=== PATIENT | female | born 1980 | race Caucasian/White ===

== ENCOUNTER 2020-04-28 22:35 | Inpatient (IN) | payer OTHER ==
[2020-04-28] MEDS ORDERED: SODIUM CHLORIDE 0.9% 500 ML 500 ML IV STA (22:40)
[2020-04-28] MEDS ORDERED: NALOXONE 0.4 MG/ML 1 ML VIAL IV STA (22:40)
--- NOTE | 2020-04-28 22:44 | ED ---
Altered Mental Status HPI - General Chief Complaint: Altered Mental Status Stated Complaint: overdose Time Seen by Provider: 04/28/20 22:39 Source: EMS Mode of arrival: EMS Limitations: altered mental status - History of Present Illness Initial Comments: This patient is a 39-year-old woman brought by ambulance for suspected overdose. Patient reportedly had been staying a friend's home. The friend found patient lying down, unresponsive. He reportedly was drug paraphernalia felt to be consistent with crack pipe, also patient suspected to have taken Xanax and possibly gabapentin. On arrival, patient arouses to tactile stimulus but speech not clear enough to elicit any history. MD Complaint: altered mental status -: unknown Severity: severe Consistency of Symptoms: unknown Context: drug abuse Treatments Prior to Arrival: oxygen - Related Data Home Medications Medication Instructions Recorded Confirmed Spectravite Ultra Women 18mg-0.4 1 tab PO DAILY 04/28/20 04/28/20 Tablet Allergies Allergy/AdvReac Type Severity Reaction Status Date / Time Unable to Assess Allergy Verified 04/28/20 22:40 Review of Systems ROS Statement: Those systems with pertinent positive or pertinent negative responses have been documented in the HPI. ROS Other: All systems not noted in ROS Statement are negative. Limitations: ROS unobtainable due to patients medical condition Past Medical History - Past Family History Mother Family Medical History: AICD/Pacemaker family Family Medical History: Unable to Obtain General Exam Limitations: altered mental status General appearance: appears intoxicated, obtunded, obese Head exam: Present: atraumatic, normocephalic Eye exam: Present: nystagmus. Absent: scleral icterus, conjunctival injection ENT exam: Present: mucous membranes dry Neck exam: Present: normal inspection. Absent: tenderness Respiratory exam: Present: rhonchi. Absent: respiratory distress, wheezes, rales, stridor Cardiovascular Exam: Present: regular rate, normal rhythm, normal heart sounds. Absent: systolic murmur, diastolic murmur, rubs, gallop GI/Abdominal exam: Present: soft. Absent: distended, tenderness, guarding, rebound, rigid, mass Extremities exam: Present: normal inspection, normal capillary refill. Absent: pedal edema, calf tenderness Back exam: Present: normal inspection. Absent: CVA tenderness (R), CVA tenderness (L) Neurological exam: Present: altered Skin exam: Present: dry, intact, mottled, other (Skin is cool). Absent: rash Course Vital Signs 04/28/20 04/28/20 04/28/20 22:35 22:46 23:00 Temperature 98.3 F Pulse Rate 66 76 Respiratory 12 12 22 Rate Blood Pressure 109/55 103/67 O2 Sat by Pulse 92 L 91 L Oximetry 04/29/20 04/29/20 04/29/20 00:00 01:00 02:00 Temperature Pulse Rate 75 112 H 110 H Respiratory 24 24 24 Rate Blood Pressure 112/75 95/80 90/60 O2 Sat by Pulse 94 L 94 L 94 L Oximetry 04/29/20 04/29/20 02:14 02:30 Temperature 102.0 F H Pulse Rate 110 H 112 H Respiratory 24 20 Rate Blood Pressure 133/99 138/74 O2 Sat by Pulse 94 L 94 L Oximetry - Reevaluation(s) Reevaluation #1: 04/29/20 00:22 I obtained additional history from the patient's friend. Patient currently staying at the home of the friend. Patient had gone to visit another associate last night and had come home around 5 AM. Patient had then stated in her room all day resting. Patient's friend noted that the light in the room was on well past the patient's usual bedtime, and when she checked, the friend found patient lying in a left lateral decubitus position on the floor next to the bed. Patient then phoned EMS. Reevaluation #2: 04/29/20 00:49 Spoke with patient's mother, Nurys Soot, who had received a phone update from the patient's friend. She states that she is not aware of any medical conditions that the patient has nor any ALLERGIES. Reevaluation #3: 04/29/20 01:06 Case is discussed with admitting physician Dr. Rodas and with Dr. Gotti covering for pulmonology. Reevaluation #4: 04/29/20 01:55 Received notification a critical troponin from laboratory. Repeat ECG pe rformed, no acute ischemia. Case discussed with Dr. Suarez who is covering for cardiology. Procedures - Central Line Placement Left Femoral Consent Obtained: emergent situation Patient Placed on Monitor/Pulse Ox: Yes MD Prep: mask, gown, gloves Central Line Prep: Chlorhexidine scrub Local Anesthesia Used: Lidocaine 1% Ultrasound Used for Placement: Yes Central Line Lumen Inserted: triple Bloods Obtained for Lab: Yes Central Line Position: good blood return, all ports aspirated, flushed, capped, sutured in place with nylon Dressing Applied: Tegaderm Patient Tolerated Procedure: well, no complications Complications: none Medical Decision Making - Lab Data Result diagrams: 04/30/20 04:05 04/30/20 04:05 Lab Results 04/28/20 04/28/20 04/28/20 Range/Units 23:00 23:00 23:00 WBC 24.7 H (3.8-10.6) k/uL RBC 5.28 (3.80-5.40) m/uL Hgb 16.4 H (11.4-16.0) gm/dL Hct 51.6 H (34.0-46.0) % MCV 97.7 (80.0-100.0) fL MCH 31.0 (25.0-35.0) pg MCHC 31.7 (31.0-37.0) g/dL RDW 13.3 (11.5-15.5) % Plt Count 227 (150-450) k/uL MPV 7.6 Neutrophils % (Manual) 72 % Band Neuts % (Manual) 7 % Lymphocytes % (Manual) 15 % Monocytes % (Manual) 6 % Neutrophils # (Manual) 19.50 H (1.3-7.7) k/uL Lymphocytes # (Manual) 3.71 (1.0-4.8) k/uL Monocytes # (Manual) 1.48 H (0-1.0) k/uL Nucleated RBCs 0 (0-0) /100 WBC Manual Slide Review Performed Hypochromasia Moderate VBG pH (7.31-7.41) VBG pCO2 (37-51) mmHg VBG HCO3 (24-28) mmol/L Sodium (137-145) mmol/L Potassium (3.5-5.1) mmol/L Chloride (98-107) mmol/L Carbon Dioxide (22-30) mmol/L Anion Gap mmol/L BUN (7-17) mg/dL Creatinine (0.52-1.04) mg/dL Est GFR (CKD-EPI)AfAm (>60 ml/min/1.73 sqM) Est GFR (CKD-EPI)NonAf (>60 ml/min/1.73 sqM) Glucose (74-99) mg/dL Lactic Ac Sepsis Rflx Plasma Lactic Acid Boo (0.7-2.0) mmol/L Calcium (8.4-10.2) mg/dL Total Bilirubin (0.2-1.3) mg/dL AST (14-36) U/L ALT (4-34) U/L Alkaline Phosphatase (38-126) U/L Creatine Kinase (30-135) U/L CK-MB (CK-2) (0.0-2.4) ng/mL Troponin I (0.000-0.034) ng/mL Total Protein (6.3-8.2) g/dL Albumin (3.5-5.0) g/dL Urine Color Yellow Urine Appearance Cloudy H (Clear) Urine pH 6.0 (5.0-8.0) Ur Specific [place] 1.020 (1.001-1.035) Urine Protein 1+ H (Negative) Urine Glucose (UA) Negative (Negative) Urine Ketones Negative (Negative) Urine Blood Negative (Negative) Urine Nitrite Negative (Negative) Urine Bilirubin Negative (Negative) Urine Urobilinogen 2.0 (<2.0) mg/dL Ur Leukocyte Esterase Negative (Negative) Urine RBC 5 (0-5) /hpf Urine WBC 4 (0-5) /hpf Ur Squamous Epith Cells 1 (0-4) /hpf Hyaline Casts 83 H (0-2) /lpf Urine Mucus Few H (None) /hpf Urine HCG, Qual Not Detected (Not Detectd) Salicylates mg/dL Urine Opiates Screen Not Detected (NotDetected) Ur Oxycodone Screen Not Detected (NotDetected) Urine Methadone Screen Detected H (NotDetected) Ur Propoxyphene Screen Not Detected (NotDetected) Acetaminophen ug/mL Ur Barbiturates Screen Not Detected (NotDetected) U Tricyclic Antidepress Detected H (NotDetected) Ur Phencyclidine Scrn Not Detected (NotDetected) Ur Amphetamines Screen Not Detected (NotDetected) U Methamphetamines Scrn Not Detected (NotDetected) U Benzodiazepines Scrn Detected H (NotDetected) Urine Cocaine Screen Detected H (NotDetected) U Marijuana (THC) Screen Detected H (NotDetected) Serum Alcohol mg/dL Coronavirus (PCR) (Not Detectd) 04/28/20 04/28/20 04/28/20 Range/Units 23:55 23:55 23:55 WBC (3.8-10.6) k/uL RBC (3.80-5.40) m/uL Hgb (11.4-16.0) gm/dL Hct (34.0-46.0) % MCV (80.0-100.0) fL MCH (25.0-35.0) pg MCHC (31.0-37.0) g/dL RDW (11.5-15.5) % Plt Count (150-450) k/uL MPV Neutrophils % (Manual) % Band Neuts % (Manual) % Lymphocytes % (Manual) % Monocytes % (Manual) % Neutrophils # (Manual) (1.3-7.7) k/uL Lymphocytes # (Manual) (1.0-4.8) k/uL Monocytes # (Manual) (0-1.0) k/uL Nucleated RBCs (0-0) /100 WBC Manual Slide Review Hypochromasia VBG pH (7.31-7.41) VBG pCO2 (37-51) mmHg VBG HCO3 (24-28) mmol/L Sodium 136 L (137-145) mmol/L Potassium 7.8 H* (3.5-5.1) mmol/L Chloride 99 (98-107) mmol/L Carbon Dioxide 18 L (22-30) mmol/L Anion Gap 19 mmol/L BUN 19 H (7-17) mg/dL Creatinine 2.49 H (0.52-1.04) mg/dL Est GFR (CKD-EPI)AfAm 27 (>60 ml/min/1.73 sqM) Est GFR (CKD-EPI)NonAf 23 (>60 ml/min/1.73 sqM) Glucose 82 (74-99) mg/dL Lactic Ac Sepsis Rflx Plasma Lactic Acid Boo 9.6 H* (0.7-2.0) mmol/L Calcium 8.1 L (8.4-10.2) mg/dL Total Bilirubin 0.7 (0.2-1.3) mg/dL AST 963 H (14-36) U/L ALT 293 H (4-34) U/L Alkaline Phosphatase 95 (38-126) U/L Creatine Kinase 14983 H* (30-135) U/L CK-MB (CK-2) 173.0 H (0.0-2.4) ng/mL Troponin I 3.930 H* (0.000-0.034) ng/mL Total Protein 7.4 (6.3-8.2) g/dL Albumin 4.3 (3.5-5.0) g/dL Urine Color Urine Appearance (Clear) Urine pH (5.0-8.0) Ur Specific Republic (1.001-1.035) Urine Protein (Negative) Urine Glucose (UA) (Negative) Urine Ketones (Negative) Urine Blood (Negative) Urine Nitrite (Negative) Urine Bilirubin (Negative) Urine Urobilinogen (<2.0) mg/dL Ur Leukocyte Esterase (Negative) Urine RBC (0-5) /hpf Urine WBC (0-5) /hpf Ur Squamous Epith Cells (0-4) /hpf Hyaline Casts (0-2) /lpf Urine Mucus (None) /hpf Urine HCG, Qual (Not Detectd) Salicylates <1.0 mg/dL Urine Opiates Screen (NotDetected) Ur Oxycodone Screen (NotDetected) Urine Methadone Screen (NotDetected) Ur Propoxyphene Screen (NotDetected) Acetaminophen <10.0 ug/mL Ur Barbiturates Screen (NotDetected) U Tricyclic Antidepress (NotDetected) Ur Phencyclidine Scrn (NotDetected) Ur Amphetamines Screen (NotDetected) U Methamphetamines Scrn (NotDetected) U Benzodiazepines Scrn (NotDetected) Urine Cocaine Screen (NotDetected) U Marijuana (THC) Screen (NotDetected) Serum Alcohol <10 mg/dL Coronavirus (PCR) (Not Detectd) 04/28/20 04/29/20 04/29/20 Range/Units 23:55 00:42 00:47 WBC (3.8-10.6) k/uL RBC (3.80-5.40) m/uL Hgb (11.4-16.0) gm/dL Hct (34.0-46.0) % MCV (80.0-100.0) fL MCH (25.0-35.0) pg MCHC (31.0-37.0) g/dL RDW (11.5-15.5) % Plt Count (150-450) k/uL MPV Neutrophils % (Manual) % Band Neuts % (Manual) % Lymphocytes % (Manual) % Monocytes % (Manual) % Neutrophils # (Manual) (1.3-7.7) k/uL Lymphocytes # (Manual) (1.0-4.8) k/uL Monocytes # (Manual) (0-1.0) k/uL Nucleated RBCs (0-0) /100 WBC Manual Slide Review Hypochromasia VBG pH 7.11 L* (7.31-7.41) VBG pCO2 64 H (37-51) mmHg VBG HCO3 19 L (24-28) mmol/L Sodium (137-145) mmol/L Potassium (3.5-5.1) mmol/L Chloride (98-107) mmol/L Carbon Dioxide (22-30) mmol/L Anion Gap mmol/L BUN (7-17) mg/dL Creatinine (0.52-1.04) mg/dL Est GFR (CKD-EPI)AfAm (>60 ml/min/1.73 sqM) Est GFR (CKD-EPI)NonAf (>60 ml/min/1.73 sqM) Glucose (74-99) mg/dL Lactic Ac Sepsis Rflx Y Plasma Lactic Acid Boo (0.7-2.0) mmol/L Calcium (8.4-10.2) mg/dL Total Bilirubin (0.2-1.3) mg/dL AST (14-36) U/L ALT (4-34) U/L Alkaline Phosphatase (38-126) U/L Creatine Kinase (30-135) U/L CK-MB (CK-2) (0.0-2.4) ng/mL Troponin I (0.000-0.034) ng/mL Total Protein (6.3-8.2) g/dL Albumin (3.5-5.0) g/dL Urine Color Urine Appearance (Clear) Urine pH (5.0-8.0) Ur Specific Republic (1.001-1.035) Urine Protein (Negative) Urine Glucose (UA) (Negative) Urine Ketones (Negative) Urine Blood (Negative) Urine Nitrite (Negative) Urine Bilirubin (Negative) Urine Urobilinogen (<2.0) mg/dL Ur Leukocyte Esterase (Negative) Urine RBC (0-5) /hpf Urine WBC (0-5) /hpf Ur Squamous Epith Cells (0-4) /hpf Hyaline Casts (0-2) /lpf Urine Mucus (None) /hpf Urine HCG, Qual (Not Detectd) Salicylates mg/dL Urine Opiates Screen (NotDetected) Ur Oxycodone Screen (NotDetected) Urine Methadone Screen (NotDetected) Ur Propoxyphene Screen (NotDetected) Acetaminophen ug/mL Ur Barbiturates Screen (NotDetected) U Tricyclic Antidepress (NotDetected) Ur Phencyclidine Scrn (NotDetected) Ur Amphetamines Screen (NotDetected) U Methamphetamines Scrn (NotDetected) U Benzodiazepines Scrn (NotDetected) Urine Cocaine Screen (NotDetected) U Marijuana (THC) Screen (NotDetected) Serum Alcohol mg/dL Coronavirus (PCR) Not Detected (Not Detectd) - EKG Data -: EKG Interpreted by [place] EKG shows normal: sinus rhythm, axis (Normal), intervals (MD interval 162 ms, QTC 44 ms, both normal. QRS duration 120 ms, consistent with nonspecific intraventricular conduction delay), QRS complexes (nonspecific intraventricular conduction delay), ST-T waves (Normal) Rate: tachycardia (Rate 111 bpm) Critical Care Time Critical Care Time: Yes (55 minutes) Disposition Clinical Impression: Drug overdose, Pneumonia, Delirium, Hyperkalemia, Acute kidney injury, Lactic acidosis Disposition: ADMITTED IP TO THIS [facility] Condition: Critical
[2020-04-28 23:16] LABS: Appearance,Urine Cloudy (Clear); Bilirubin,Urine Negative (Negative); Blood,Urine Negative (Negative); Color,Urine Yellow; Glucose,Urine (UA) Negative (Negative); Hyaline Casts,Urine 83 /lpf (0-2); Ketones,Urine Negative (Negative); Leukocyte Esterase,Urine Negative (Negative); Mucus,Urine Few /hpf; Nitrite,Urine Negative (Negative); Protein,Urine 1+ (Negative); RBC,Urine 5 /hpf (0-5); Squamous Epithelial Cell,Urine 1 /hpf (0-4); WBC,Urine 4 /hpf (0-5)
--- NOTE | 2020-04-28 23:20 | XR ---
EXAMINATION TYPE: XR chest 1V portable DATE OF EXAM: 04/28/2020 COMPARISON: NONE HISTORY: Overdose. Vomiting. TECHNIQUE: FINDINGS: There is some patchy airspace consolidation in the left upper and lower lobe. The right nakia g is clear. There is no heart failure. Heart size is normal. There is no definite pleural effusion. IMPRESSION: Left side pneumonia.
[2020-04-28] MEDS ORDERED: PIPERACILLIN-TAZOBACTAM 3.375 GM in SODIUM CHLORIDE 0.9% 100 ML IVPB STA (23:21)
[2020-04-28 23:29] LABS: Amphetamine Screen,Urine Not Detected (NotDetected); Benzodiazepines Screen,Urine Detected (NotDetected); Cocaine Screen,Urine Detected (NotDetected); Opiate Screen,Urine Not Detected (NotDetected); Phencyclidine Screen,Urine Not Detected (NotDetected); Tricyclic Antidepressant,Urine Detected (NotDetected); Urn Cannabinoid Scrn Detected (NotDetected)
[2020-04-28 23:30] LABS: Barbiturate Screen,Urine Not Detected (NotDetected); Methadone Screen, Urine Detected (NotDetected); Oxycodone Screen, Urine Not Detected (NotDetected)
[2020-04-28] MEDS: LEVOFLOXACIN 750MG-D5W PMX 750 MG in DEXTROSE/WATER 1 150ML.BAG IVPB STA ×2 (23:30→23:32)
[2020-04-28 23:35] LABS: HCT 51.6 % (34.0-46.0); HGB 16.4 gm/dL (11.4-16.0); Hypochromasia Moderate; MCHC 31.7 g/dL (31.0-37.0); MCV 97.7 fL (80.0-100.0); Mean Platelet Volume 7.6; Platelet Count 227 k/uL (150-450); RBC 5.28 m/uL (3.80-5.40); RDW 13.3 % (11.5-15.5); WBC 24.7 k/uL (3.8-10.6)
[2020-04-29 00:07] LABS: Band Neutrophils % 7 %; Lymphocytes # (M) 3.71 k/uL (1.0-4.8); Monocytes # (M) 1.48 k/uL (0-1.0); Neutrophils % (M) 72 %; Nucleated Red Blood Cells 0 /100 WBC (0-0); Total Cells Counted 100
[2020-04-29] MEDS ORDERED: MORPHINE SULFATE 4 MG/ML SYRINGE IV STA (00:21)
--- NOTE | 2020-04-29 00:28 | CT ---
EXAM: CT Head Without Intravenous Contrast CLINICAL HISTORY: ITS.REASON CT Reason: altered mental status TECHNIQUE: Axial computed tomography images of the head/brain without intravenous contrast. CTDI is 49.27 mGy and DLP is 1217.4 mGy-cm. This CT exam was performed using one or more of the following dose reduction techniques: automated exposure control, adjustment of the mA and/or kV according to patient size, and/or use of iterative reconstruction technique. COMPARISON: No relevant prior studies available. FINDINGS: Brain: No hemorrhage or mass effect. Ventricles: No hydrocephalus. Bones/joints: Unremarkable. Soft tissues: Unremarkable. Sinuses: Unremarkable. Mastoid air cells: Clear. IMPRESSION: No acute hemorrhage, hydrocephalus, or mass effect.
[2020-04-29 00:37] LABS: Acetaminophen <10.0 ug/mL; African American GFR (CKD) 27 (>60 ml/min/1.73 sqM); Albumin 4.3 g/dL (3.5-5.0); Alcohol <10 mg/dL; Alkaline Phosphatase 95 U/L (38-126); Anion Gap 19 mmol/L; Blood Urea Nitrogen 19 mg/dL (7-17); Calcium 8.1 mg/dL (8.4-10.2); Carbon Dioxide 18 mmol/L (22-30); Chloride 99 mmol/L (98-107); Glucose 82 mg/dL (74-99); Non-African American GFR(CKD) 23 (>60 ml/min/1.73 sqM); Salicylate <1.0 mg/dL; Sodium 136 mmol/L (137-145); Total Bilirubin 0.7 mg/dL (0.2-1.3); Total Protein 7.4 g/dL (6.3-8.2)
[2020-04-29 00:42] LABS: AST 963 U/L (14-36)
[2020-04-29] MEDS ORDERED: HYDROmorphone 0.5 MG/0.5 ML SYRINGE IVP STA (00:42)
[2020-04-29] MEDS ORDERED: SODIUM CHLORIDE 0.9% 1,000 ML IV ONE ×3 (00:42→05:23)
[2020-04-29 00:44] LABS: ALT 293 U/L (4-34)
[2020-04-29 00:54] LABS: Potassium 7.8 mmol/L (3.5-5.1)
[2020-04-29] MEDS ORDERED: SODIUM CHLORIDE 0.9% 1,000 ML IV STA (00:57)
[2020-04-29] MEDS ORDERED: VANCOMYCIN IV PER PHARMACY 1 EACH MISC MISCELLANE PRN (00:58)
[2020-04-29] MEDS ORDERED: DEXTROSE 50% SYRINGE 50 ML IVP STA ×2 (00:59→19:23)
[2020-04-29] MEDS ORDERED: CALCIUM GLUCONATE 1 GM in SODIUM CHLORIDE 0.9% 100 ML IVPB ONE ×3 (00:59→09:45)
[2020-04-29] MEDS ORDERED: INSULIN REGULAR 100 UNIT/ML VIAL (IV) IV STA (00:59)
[2020-04-29] MEDS ORDERED: SODIUM BICARB 8.4% 50 ML SYR (1 MEQ/ML) IV STA ×2 (00:59→06:56)
[2020-04-29 01:00] LABS: VBG PH 7.11 (7.31-7.41)
[2020-04-29] MEDS ORDERED: VANCOMYCIN 1,750 MG in SODIUM CHLORIDE 0.9% 500 ML 500 ML IVPB SCH (01:00)
--- NOTE | 2020-04-29 01:00 | CT ---
EXAM: CT Abdomen and Pelvis Without Intravenous Contrast CLINICAL HISTORY: ITS.REASON CT Reason: vomiting TECHNIQUE: Axial computed tomography images of the abdomen and pelvis without intravenous contrast. CTDI is 28.8 mGy and DLP is 1825 mGy-cm. This CT exam was performed using one or more of the following dose reduction techniques: automated exposure control, adjustment of the mA and/or kV according to patient size, and/or use of iterative reconstruction technique. COMPARISON: No relevant prior studies available. FINDINGS: Lung bases: Patchy opacities in the left upper and lower lobes. Mild cardiomegaly. ABDOMEN: Liver: Unremarkable. Gallbladder and bile ducts: Removed. Pancreas: No ductal dilation. Spleen: Unremarkable. Adrenals: Unremarkable. Kidneys and ureters: No obstructing stones. No hydronephrosis. Stomach and bowel: No bowel obstruction. No bowel wall thickening. Mildly impacted stool throughout the colon. Mild hiatal hernia. PELVIS: Appendix: No evidence of appendicitis. Bladder: No stones. Reproductive: Calcification in the uterus. ABDOMEN and PELVIS: Intraperitoneal space: Unremarkable. Bones/joints: No acute fractures. Soft tissues: Soft tissues thickening and emphysema on the left breast.. Vasculature: No abdominal aortic aneurysm. Lymph nodes: No enlarged lymph nodes. IMPRESSION: 1. Soft tissue swelling and subcutaneous emphysema involving the left breast. Correlate with infectious process the recent procedure. 2. Patchy opacity in the left upper and lower lobes, correlate with aspiration versus pneumonia. 3. Mild hiatal hernia. 4. Mildly impacted stool throughout the colon.
[2020-04-29 01:27] LABS: Troponin I 3.93 ng/mL (0.000-0.034)
[2020-04-29] MEDS ORDERED: ACETAMINOPHEN SUPPOSITORY 650 MG SUPP RECTAL PRN (01:47)
[2020-04-29] MEDS ORDERED: NALOXONE 0.4 MG/ML 1 ML VIAL IV PRN (01:47)
[2020-04-29] MEDS ORDERED: MORPHINE SULFATE 4 MG/ML SYRINGE IV PRN (01:47)
[2020-04-29] MEDS ORDERED: ACETAMINOPHEN TAB 325 MG TAB PO PRN (01:47)
[2020-04-29 01:53] LABS: Creatine Kinase 47269 U/L (30-135)
[2020-04-29] MEDS ORDERED: SODIUM CHLORIDE 0.9% 1,000 ML IV SCH (02:00)
[2020-04-29 02:55] LABS: Glucose,Whole Blood 107 mg/dL (75-99)
[2020-04-29] MEDS ORDERED: propofoL 100 ML IV ONE (03:11)
[2020-04-29] MEDS ORDERED: PANTOPRAZOLE 40 MG/10 ML VIAL IVP ONE (03:23)
--- NOTE | 2020-04-29 03:38 | P.HPIM ---
History of Present Illness H&P Date: 04/29/20 Chief Complaint: unresponsive patient is combative, and using foul language when I approached her in the ED, she is definitely more awake compared to upon presentation , but currently Alert, restless, and agitated. she is not providing any history history obtained by discussing case with ED doc, and reviewing medical records. patient brought to the hospital by EMS , due to being found unresponsive, she is a recovering drug abuser, supposedly on methadone. she spent a night at a friends house and possibly have done some drugs there. and went back to her other friend house around 5 AM to rest. this friend became suspicious when he noticed the room light still on till late during the day past her usual sleep time. so he went checking on her, and found her laying on the floor on her left side, next to the bed, unresponsive. so decided to notify EMS. family did not report any known medical conditions or allergies. patient currently laying in bed in soft restraints, I noticed dry blood around her nose and mouth, per ED, she had coffee ground Emesis . initially upon presentation she was waking up to gentle stimulation , but not making any sense. she responded a little to a dose of narcan. however, currently she is alert, combative and agitated. she makes good eye contact, but does not cooperate with interview , and using foul language. work up in the ED showed REGLA lactic acidosis hyperkalemia suspected aspiration vs pneumonia leukocytosis and acute rhabdomyolysis Review of Systems ROS unobtainable: due to mental status Past Medical History Past Medical History: Unable to Obtain History of Any Multi-Drug Resistant Organisms: Unobtainable Past Surgical History: Unable to Obtain Past Psychological History: Unable to Obtain - Past Family History family Family Medical History: Unable to Obtain Medications and Allergies Home Medications Medication Instructions Recorded Confirmed Type Spectravite Ultra Women 18mg-0.4 1 tab PO DAILY 04/28/20 04/28/20 History Tablet Allergies Allergy/AdvReac Type Severity Reaction Status Date / Time Unable to Assess Allergy Verified 04/28/20 22:40 Physical Exam Vitals: Vital Signs Temp Pulse Resp BP Pulse Ox 04/29/20 02:14 102.0 F H 110 H 24 133/99 94 L 04/28/20 22:46 12 04/28/20 22:35 98.3 F 66 12 109/55 92 L Intake and Output 04/28/20 04/28/20 04/29/20 14:59 22:59 06:59 Other: Weight 113.398 kg patient combative and agitated. I could not perform proper physical exam however, patient is alert, makes eye contact, but seems confused and agitated, she is using clear foul language when approached or engaged. and becomes very agitated she has evidence of dry blood around her nostrils and mouth she is currently in soft restraints Results CBC & Chem 7: 04/28/20 23:00 04/28/20 23:55 Labs: Abnormal Lab Results - Last 24 Hours (Table) 04/28/20 04/28/20 04/28/20 Range/Units 23:00 23:00 23:55 WBC 24.7 H (3.8-10.6) k/uL Hgb 16.4 H (11.4-16.0) gm/dL Hct 51.6 H (34.0-46.0) % Neutrophils # (Manual) 19.50 H (1.3-7.7) k/uL Monocytes # (Manual) 1.48 H (0-1.0) k/uL VBG pH (7.31-7.41) VBG pCO2 (37-51) mmHg VBG HCO3 (24-28) mmol/L Sodium (137-145) mmol/L Potassium (3.5-5.1) mmol/L Carbon Dioxide (22-30) mmol/L BUN (7-17) mg/dL Creatinine (0.52-1.04) mg/dL POC Glucose (mg/dL) (75-99) mg/dL Plasma Lactic Acid Boo 9.6 H* (0.7-2.0) mmol/L Calcium (8.4-10.2) mg/dL AST (14-36) U/L ALT (4-34) U/L Creatine Kinase (30-135) U/L CK-MB (CK-2) (0.0-2.4) ng/mL Troponin I (0.000-0.034) ng/mL Urine Appearance Cloudy H (Clear) Urine Protein 1+ H (Negative) Hyaline Casts 83 H (0-2) /lpf Urine Mucus Few H (None) /hpf Urine Methadone Screen Detected H (NotDetected) U Tricyclic Antidepress Detected H (NotDetected) U Benzodiazepines Scrn Detected H (NotDetected) Urine Cocaine Screen Detected H (NotDetected) U Marijuana (THC) Screen Detected H (NotDetected) 04/28/20 04/28/20 04/28/20 Range/Units 23:55 23:55 23:55 WBC (3.8-10.6) k/uL Hgb (11.4-16.0) gm/dL Hct (34.0-46.0) % Neutrophils # (Manual) (1.3-7.7) k/uL Monocytes # (Manual) (0-1.0) k/uL VBG pH 7.11 L* (7.31-7.41) VBG pCO2 64 H (37-51) mmHg VBG HCO3 19 L (24-28) mmol/L Sodium 136 L (137-145) mmol/L Potassium 7.8 H* (3.5-5.1) mmol/L Carbon Dioxide 18 L (22-30) mmol/L BUN 19 H (7-17) mg/dL Creatinine 2.49 H (0.52-1.04) mg/dL POC Glucose (mg/dL) (75-99) mg/dL Plasma Lactic Acid Boo (0.7-2.0) mmol/L Calcium 8.1 L (8.4-10.2) mg/dL AST 963 H (14-36) U/L ALT 293 H (4-34) U/L Creatine Kinase 69475 H* (30-135) U/L CK-MB (CK-2) 173.0 H (0.0-2.4) ng/mL Troponin I 3.930 H* (0.000-0.034) ng/mL Urine Appearance (Clear) Urine Protein (Negative) Hyaline Casts (0-2) /lpf Urine Mucus (None) /hpf Urine Methadone Screen (NotDetected) U Tricyclic Antidepress (NotDetected) U Benzodiazepines Scrn (NotDetected) Urine Cocaine Screen (NotDetected) U Marijuana (THC) Screen (NotDetected) 04/29/20 Range/Units 02:53 WBC (3.8-10.6) k/uL Hgb (11.4-16.0) gm/dL Hct (34.0-46.0) % Neutrophils # (Manual) (1.3-7.7) k/uL Monocytes # (Manual) (0-1.0) k/uL VBG pH (7.31-7.41) VBG pCO2 (37-51) mmHg VBG HCO3 (24-28) mmol/L Sodium (137-145) mmol/L Potassium (3.5-5.1) mmol/L Carbon Dioxide (22-30) mmol/L BUN (7-17) mg/dL Creatinine (0.52-1.04) mg/dL POC Glucose (mg/dL) 107 H (75-99) mg/dL Plasma Lactic Acid Boo (0.7-2.0) mmol/L Calcium (8.4-10.2) mg/dL AST (14-36) U/L ALT (4-34) U/L Creatine Kinase (30-135) U/L CK-MB (CK-2) (0.0-2.4) ng/mL Troponin I (0.000-0.034) ng/mL Urine Appearance (Clear) Urine Protein (Negative) Hyaline Casts (0-2) /lpf Urine Mucus (None) /hpf Urine Methadone Screen (NotDetected) U Tricyclic Antidepress (NotDetected) U Benzodiazepines Scrn (NotDetected) Urine Cocaine Screen (NotDetected) U Marijuana (THC) Screen (NotDetected) Assessment and Plan Assessment: acute metabolic encephalopathy sepsis rule out pneumonia acute rhabdomyolysis acute kindey injury hyperkalemia lactic acidosis possible upper GI bleeding history of polysubstance abuse plan admission to ICU close monitoring of vital sings patient had central venous cath inserted monitor electrolytes , hyperkalemia cocktail given , recheck in 4 hours and repeat as needed nephro consult monitor urine output aggressive IVF hydration with normal saline , monitor CK pain control with morphine if mental status allows and appropriate blood culture empiric antibiotics with vanco and zosyn check COVID protonix IV BID , and one time dose of 80mg GI consult elevated trops , no acute ST changes on EKG cardiology consult avoid anticoagulation due to Upper GI bleeding supplemental oxygen as needed patient was not intubated due to significant improvement in mental status , and clearly able to protect her airways at this time CODE STATUS: full code DVT prophylaxis: mechanical Discussed with: Patient, ER Anticipated length of stay > than [address]: pending clinical course A total of 75 minutes was spent on the care of this complex patient more than 50% of the time was spent in counseling and care coordination.
[2020-04-29] MEDS ORDERED: PROPOFOL 10 MG/ML 20 ML VIAL IV ONE (03:55)
[2020-04-29] MEDS ORDERED: ROCURONIUM 10 MG/ML (5 ML VIAL) IV ONE (03:55)
--- NOTE | 2020-04-29 05:13 | XR ---
EXAM: XR Chest, 1 View CLINICAL HISTORY: ITS.REASON XR Reason: Intubation TECHNIQUE: Frontal view of the chest. COMPARISON: 04/28/2020 IMPRESSION: Improved aeration of the left lung opacities. ET tube terminates 4.3 cm from the savanna. NG side-port terminates in the proximal stomach.
[2020-04-29] MEDS: SODIUM CHLORIDE 0.9% 1,000 ML IV SCH ×4 (05:23→19:16)
[2020-04-29 05:49] LABS: Amorphous Sediment,Urine Few /hpf; Appearance,Urine Cloudy (Clear); Bilirubin,Urine Negative (Negative); Blood,Urine Large (Negative); Color,Urine Red; Glucose,Urine (UA) Negative (Negative); Hyaline Casts,Urine 7 /lpf (0-2); Ketones,Urine Negative (Negative); Leukocyte Esterase,Urine Negative (Negative); Mucus,Urine Occasional /hpf; Nitrite,Urine Negative (Negative); Protein,Urine 2+ (Negative); RBC,Urine 3 /hpf (0-5); Specific Gravity,Urine 1.019 (1.001-1.035); Squamous Epithelial Cell,Urine 1 /hpf (0-4); Urobilinogen,Urine <2.0 mg/dL (<2.0); WBC,Urine 10 /hpf (0-5)
[2020-04-29 05:54] LABS: ABG Base Excess -8.4 mmol/L; ABG HCO3 19 mmol/L (21-25); ABG Oxygen Saturation 96.3 % (94-97); ABG PCO2 42 mmHg (35-45); ABG PH 7.26 (7.35-7.45); ABG PO2 93 mmHg (83-108); ABG TCO2 20 mmol/L (19-24); Allen Test Performed? Yes
[2020-04-29 06:28] LABS: Basophils # (A) 0.1 k/uL (0-0.2); Basophils % (A) 0 %; Eosinophils % (A) 0 %; HCT 49.6 % (34.0-46.0); Lymphocytes # (A) 1.4 k/uL (1.0-4.8); Lymphocytes % (A) 6 %; MCH 30.9 pg (25.0-35.0); MCHC 32.2 g/dL (31.0-37.0); MCV 95.9 fL (80.0-100.0); Mean Platelet Volume 9.1; Monocytes # (A) 1.1 k/uL (0-1.0); Monocytes % (A) 5 %; Neutrophils # (A) 19.5 k/uL (1.3-7.7); Neutrophils % (A) 88 %; Platelet Count 137 k/uL (150-450); RBC 5.18 m/uL (3.80-5.40); RDW 13.5 % (11.5-15.5); WBC 22.3 k/uL (3.8-10.6)
[2020-04-29 06:40] LABS: Albumin 2.5 g/dL (3.5-5.0); Total Bilirubin 0.5 mg/dL (0.2-1.3); Total Protein 4.9 g/dL (6.3-8.2)
[2020-04-29 06:46] LABS: Calcium 6.3 mg/dL (8.4-10.2); Potassium 6.5 mmol/L (3.5-5.1)
[2020-04-29] MEDS ORDERED: DEXTROSE 50% SYRINGE 50 ML IVP ONE (06:53)
[2020-04-29] MEDS ORDERED: SODIUM POLYSTYRENE SULFONATE 15 GM/60 ML BOTTLE PO ONE (06:53)
[2020-04-29] MEDS ORDERED: INSULIN REGULAR 100 UNIT/ML VIAL (IV) IV ONE ×2 (06:53→19:23)
[2020-04-29 07:06] LABS: Glucose,Whole Blood 118 mg/dL (75-99)
[2020-04-29] MEDS: IPRATROPIUM-ALBUTEROL 3 ML NEB INHALATION SCH ×4 (08:37→19:30)
[2020-04-29] MEDS: CHLORHEXIDINE GLUCONATE 15 ML CUP MUCOUS MEM SCH ×2 (08:46→20:44)
[2020-04-29] MEDS: PANTOPRAZOLE 40 MG/10 ML VIAL IVP SCH ×2 (08:46→20:44)
[2020-04-29] MEDS: PIPERACILLIN-TAZOBACTAM 3.375 GM in SODIUM CHLORIDE 0.9% 100 ML IVPB SCH ×2 (08:46→16:50)
[2020-04-29] MEDS ORDERED: FAMOTIDINE 20 MG/2 ML VIAL IV SCH (09:00)
[2020-04-29] MEDS ORDERED: ACETAMINOPHEN IV (For NPO) 1,000 MG in EMPTY BAG 1 BAG IVPB ONE (09:00)
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
[2020-04-29] MEDS: DEXTROSE 5% IN WATER 1,000 ML with SODIUM BICARB (1 MEQ/ML) 150 ML IV SCH (09:29)
--- NOTE | 2020-04-29 09:45 | P.NPCON ---
History of Present Illness - Reason for Consult acute renal failure, hyperkalemia - History of Present Illness Reason for consultation: Acute kidney injury, rhabdomyolysis and hyperkalemia History of present illness: Patient is a 39-year-old female seen in renal consultation for acute kidney injury, rhabdomyolysis and hyperkalemia. Patient had been staying at a friend's house that she hadn't seen in a while and was subsequently found more altered by another friend. She was subsequently brought to the hospital by the ambulance for suspected overdose. Patient's urine drug screen was positive for methadone, TCAs, benzodiazepines, cocaine and marijuana. Serum alcohol and salicylate level was negative. Patient's potassium level was 7.8 and was down to 6.5 this morning. It was again medically treated this morning and repeat level is pending. Her bicarb level was 18 and is up to 20. Patient's CK level was 47,269 yesterday night and is up to 82,832 this morning. She is receiving normal saline at 200 mL an hour and isotonic bicarbonate drip at 75 mL an hour was also started this morning. Urine output about 50 mL an hour. She also received 4-1/2 L of normal saline bolus so far. Creatinine was 2.49 on admission and is 2.18 today. Unknown baseline renal function. Corrected calcium 7.5 this morning. Ionized calcium a little low at 3.7. Vital signs are stable. General: The patient appeared well nourished and normally developed. HEENT: Intubated. LUNGS: Breath sounds decreased. HEART: Rate and Rhythm are regular. ABDOMEN: Soft, nontender. Obese. EXTREMITITES: No edema. Past Medical History Past Medical History: Unable to Obtain History of Any Multi-Drug Resistant Organisms: None Reported, Unobtainable Past Surgical History: Orthopedic Surgery Additional Past Surgical History / Comment(s): Left leg surgery, hospital unknown. Past Psychological History: Anxiety, Depression Additional Psychological History / Comment(s): Per friend Smoking Status: Unknown if ever smoked Past Alcohol Use History: Daily Past Drug Use History: Heroin, IV Drug Use, Prescription Drug Abuse Additional Drug Use History / Comment(s): Per friend - Past Family History Mother Family Medical History: AICD/Pacemaker family Family Medical History: Unable to Obtain Medications and Allergies Home Medications Medication Instructions Recorded Confirmed Type Spectravite Ultra Women 18mg-0.4 1 tab PO DAILY 03/14/21 03/14/21 History Tablet Allergies Allergy/AdvReac Type Severity Reaction Status Date / Time Unable to Assess Allergy Verified 04/28/20 22:40 Physical Exam Vitals: Vital Signs Temp Pulse Resp BP Pulse Ox 04/29/20 09:00 101 H 25 H 115/79 89 L 04/29/20 08:38 102 H 04/29/20 08:30 103 H 29 H 109/81 91 L 04/29/20 08:00 101.4 F H 102 H 25 H 116/78 94 L 04/29/20 07:30 99 31 H 99/57 95 04/29/20 07:15 98 30 H 86/72 94 L 04/29/20 07:00 98 32 H 99/63 94 L 04/29/20 06:45 98 35 H 95/48 93 L 04/29/20 06:30 98 34 H 85/48 93 L 04/29/20 06:15 96 37 H 78/31 93 L 04/29/20 06:00 98 35 H 95 04/29/20 05:45 99 37 H 96/69 94 L 04/29/20 05:30 101 H 40 H 72/53 93 L 04/29/20 05:10 101 H 35 H 89/56 95 04/29/20 05:00 105 H 40 H 103/53 93 L 04/29/20 04:50 105 H 29 H 103/53 95 04/29/20 04:40 101.6 F H 105 H 37 H 80/39 96 04/29/20 04:39 106 H 38 H 80/39 96 04/29/20 04:20 116 H 22 151/81 95 04/29/20 04:10 114 H 21 105/54 94 L 04/29/20 04:00 112 H 20 90 L 04/29/20 03:50 114 H 20 114/95 98 04/29/20 03:40 109 H 19 160/97 90 L 04/29/20 03:30 112 H 33 H 160/97 93 L 04/29/20 03:20 112 H 21 117/102 87 L 04/29/20 03:10 112 H 44 H 117/102 89 L 04/29/20 03:00 111 H 41 H 117/102 90 L 04/29/20 02:52 89 L 04/29/20 02:30 112 H 20 138/74 94 L 04/29/20 02:14 102.0 F H 110 H 24 133/99 94 L 04/29/20 02:00 110 H 24 90/60 94 L 04/29/20 01:00 112 H 24 95/80 94 L 04/29/20 00:00 75 24 112/75 94 L 04/28/20 23:00 76 22 103/67 91 L 04/28/20 22:46 12 04/28/20 22:35 98.3 F 66 12 109/55 92 L Intake and Output 04/28/20 04/29/20 04/29/20 22:59 06:59 14:59 Intake Total 842.468 400 Output Total 220 80 Balance 622.468 320 Intake: IV 800 400 Sodium Chloride 0.9% 1, 800 400 000 ml @ 200 mls/hr IV . Q5H SPIKE Rx#:[id number] Intake, IV Titration 42.468 Amount propofoL 1,000 mg In 42.468 Empty Bag 1 bag @ Titrate IV .Q0M SPIKE Rx#: [id number] Output: Urine 220 80 Other: Voiding Method Indwelling Catheter # Voids 0 Weight 113.398 kg 123.8 kg ABP, PAP, CO, CI - Last 8 Hours Arterial Blood Pressure 113/71 Arterial Blood Pressure 121/72 Arterial Blood Pressure 114/67 Arterial Blood Pressure 112/65 Arterial Blood Pressure 96/63 Arterial Blood Pressure 90/64 Arterial Blood Pressure 93/65 Arterial Blood Pressure 82/60 Arterial Blood Pressure 80/64 Arterial Blood Pressure 71/48 Arterial Blood Pressure 73/51 Arterial Blood Pressure 83/57 Arterial Blood Pressure 72/49 Arterial Blood Pressure 86/61 Arterial Blood Pressure 90/61 Arterial Blood Pressure 73/52 Arterial Blood Pressure 72/51 Arterial Blood Pressure 119/78 Arterial Blood Pressure 116/79 Results - Lab Results Most recent lab results ABG pH 7.26 (7.35-7.45) L 04/29/20 05:55 ABG pCO2 42 mmHg (35-45) 04/29/20 05:55 ABG pO2 93 mmHg (83-108) 04/29/20 05:55 ABG HCO3 19 mmol/L (21-25) L 04/29/20 05:55 ABG O2 Saturation 96.3 % (94-97) 04/29/20 05:55 Calcium 6.3 mg/dL (8.4-10.2) L* 04/29/20 04:35 04/29/20 04:35 04/29/20 04:35 Assessment and Plan Plan: Assessment: 1. Acute kidney injury secondary to ATN secondary to rhabdomyolysis. Creatinine 2.49 on admission and is 2.18 today. Unknown baseline renal function. 2. Rhabdomyolysis. 3. Hyperkalemia secondary to acute kidney injury, rhabdomyolysis and metabolic acidosis. 4. Hypocalcemia secondary to acute kidney injury and rhabdomyolysis. 5. Metabolic acidosis secondary to acute kidney injury and IV fluids. 6. Polysubstance drug overdose. Plan: Maintain normal saline as well as bicarbonate drip. Repeat potassium level at 11 AM. Repeat CMP and CK level again this evening. Poison control will also be notified. Calcium is being replaced. Avoid nephrotoxins. Continue to monitor renal function and urine output closely. Continue to assess closely for need for renal replacement therapy. Thank you for the consultation. I will continue to follow the patient with you during her hospital stay.
[2020-04-29 10:27] VITALS: BMI 42.7
--- NOTE | 2020-04-29 10:56 | ECHOF ---
Referral Reason:elevated troponin MEASUREMENTS -------- HEIGHT: 170.2 cm WEIGHT: 123.4 kg BP: 116/69 RVIDd: 3.5 cm (< 3.3) IVSd: 1.3 cm (0.6 - 1.1) LVIDd: 3.7 cm (3.9 - 5.3) LVPWd: 1.1 cm (0.6 - 1.1) IVSs: 1.8 cm LVIDs: 2.6 cm LVPWs: 1.6 cm LA Diam: 2.9 cm (2.7 - 3.8) Ao Diam: 3.3 cm (2.0 - 3.7) AV Cusp: 1.9 cm (1.5 - 2.6) MV EXCURSION: 14.642 mm (> 18.000) MV EF SLOPE: 69 mm/s (70 - 150) EPSS: 0.8 cm MV E Nikko: 0.72 m/s MV DecT: 259 ms MV A Nikko: 0.52 m/s MV E/A Ratio: 1.37 RAP: 5.00 mmHg RVSP: 21.14 mmHg FINDINGS -------- Resting tachycardia (HR>100bpm). This was a technically difficult study with suboptimal views. The left ventricular size is normal. There is mild concentric left ventricular hypertrophy. Overa ll left ventricular systolic function is normal with, an EF between 55 - 60 %. The right ventricle is mildly enlarged. The left atrium is normal in size. The right atrium was not well visualized. 3 ml of Lumason was utilized for enhancement of images. The aortic valve is trileaflet and appears structurally normal. The mitral valve is normal. Mild tricuspid regurgitation present. Right ventricular systolic pressure is normal at < 35 mmHg. Trace/mild (physiologic) pulmonic regurgitation. The aortic root size is normal. IVC Not well visulized. There is no pericardial effusion. CONCLUSIONS -------- 1. Resting tachycardia (HR>100bpm). 2. This was a technically difficult study with suboptimal views. 3. The left ventricular size is normal. 4. There is mild concentric left ventricular hypertrophy. 5. Overall left ventricular systolic function is normal with, an EF between 55 - 60 %. 6. The right ventricle is mildly enlarged. 7. 3 ml of Lumason was utilized for enhancement of images. 8. Mild tricuspid regurgitation present. 9. Trace/mild (physiologic) pulmonic regurgitation. 10. There is no pericardial effusion. PREPARATION ROOM MANAGER: Tricia Galeano RDCS
[2020-04-29 11:40] LABS: Potassium 5.1 mmol/L (3.5-5.1)
[2020-04-29 11:56] LABS: Calcium 4.9 mg/dL (8.4-10.2)
[2020-04-29] MEDS ORDERED: VANCOMYCIN 2,000 MG in SODIUM CHLORIDE 0.9% 500 ML 500 ML IVPB SCH (12:00)
[2020-04-29] MEDS ORDERED: METOPROLOL TARTRATE 12.5 MG TAB PO SCH (12:00)
--- NOTE | 2020-04-29 12:06 | P.PN ---
Subjective Progress Note Date: 04/29/20 Principal diagnosis: Drug overdose Patient was seen and evaluated by me this morning in the ICU. She is sedated and intubated. She is receiving aggressive IV fluid hydration and currently hemodynamically stable. She is currently on PEEP of 10 and FiO2 of 100%. Objective - Vital Signs Vital signs: Vital Signs Temp 101.4 F H 04/29/20 08:00 Pulse 98 04/29/20 11:00 Resp 21 04/29/20 11:00 BP 115/79 04/29/20 09:00 Pulse Ox 94 L 04/29/20 11:00 Intake & Output 04/28/20 04/29/20 04/29/20 18:59 06:59 18:59 Intake Total 693.105 1335.546 Output Total 220 220 Balance 705.128 3569.546 Weight 123.8 kg 123.8 kg Intake: IV 800 1000 Sodium Chloride 0.9% 1, 800 1000 000 ml @ 200 mls/hr IV . Q5H SPIKE Rx#:[id number] Intake, IV Titration 42.468 524.546 Amount ACETAMINOPHEN IV (For NPO 100 ) 1,000 mg In Empty Bag 1 bag @ 400 mls/hr IVPB ONCE ONE Rx#:[id number] Calcium Gluconate 1 gm In 100 Sodium Chloride 0.9% 100 ml @ 100 mls/hr IVPB ONCE ONE Rx#:[id number] Dextrose 5% in Water 1, 150 000 ml @ 75 mls/hr IV . [id number] SPIKE with Sodium Bicarb (1 Meq/ml) 150 ml Rx#:[id number] Piperacillin-Tazobactam 3 75 .375 gm In Sodium Chloride 0.9% 100 ml @ 25 mls/hr IVPB Q8HR SPIKE Rx# :[id number] propofoL 1,000 mg In 42.468 99.546 Empty Bag 1 bag @ Titrate IV .Q0M SPIKE Rx#: [id number] Output: Urine 220 220 Other: Voiding Method Indwelling Catheter # Voids 0 ABP, PAP, CO, CI - Last Documented Arterial Blood Pressure 129/81 - Exam General: The patient is sedated and intubated Eye: there is normal conjunctiva bilaterally. Neck: The neck is supple, there is no JVD. Cardiovascular: Normal S1-S2, no S3-S4, no murmurs. Respiratory: Lungs with mechanical ventilator sounds Gastrointestinal: Abdomen is soft, nontender Musculoskeletal: There is no pedal edema. Skin: Skin is warm and dry - Labs CBC & Chem 7: 04/29/20 04:35 04/29/20 04:35 Labs: Abnormal Lab Results - Last 24 Hours (Table) 04/28/20 04/28/20 04/28/20 Range/Units 23:00 23:00 23:55 WBC 24.7 H (3.8-10.6) k/uL Hgb 16.4 H (11.4-16.0) gm/dL Hct 51.6 H (34.0-46.0) % Plt Count (150-450) k/uL Neutrophils # (1.3-7.7) k/uL Neutrophils # (Manual) 19.50 H (1.3-7.7) k/uL Monocytes # (0-1.0) k/uL Monocytes # (Manual) 1.48 H (0-1.0) k/uL ABG pH (7.35-7.45) ABG HCO3 (21-25) mmol/L VBG pH (7.31-7.41) VBG pCO2 (37-51) mmHg VBG HCO3 (24-28) mmol/L Sodium (137-145) mmol/L Potassium (3.5-5.1) mmol/L Carbon Dioxide (22-30) mmol/L BUN (7-17) mg/dL Creatinine (0.52-1.04) mg/dL Glucose (74-99) mg/dL POC Glucose (mg/dL) (75-99) mg/dL Plasma Lactic Acid Boo 9.6 H* (0.7-2.0) mmol/L Calcium (8.4-10.2) mg/dL Ionized Calcium Apollo (4.5-5.3) mg/dL AST (14-36) U/L ALT (4-34) U/L Creatine Kinase (30-135) U/L CK-MB (CK-2) (0.0-2.4) ng/mL Troponin I (0.000-0.034) ng/mL Total Protein (6.3-8.2) g/dL Albumin (3.5-5.0) g/dL Urine Appearance Cloudy H (Clear) Urine Protein 1+ H (Negative) Urine Blood (Negative) Urine WBC (0-5) /hpf Amorphous Sediment (None) /hpf Hyaline Casts 83 H (0-2) /lpf Urine Mucus Few H (None) /hpf Urine Methadone Screen Detected H (NotDetected) U Tricyclic Antidepress Detected H (NotDetected) U Benzodiazepines Scrn Detected H (NotDetected) Urine Cocaine Screen Detected H (NotDetected) U Marijuana (THC) Screen Detected H (NotDetected) 04/28/20 04/28/20 04/28/20 Range/Units 23:55 23:55 23:55 WBC (3.8-10.6) k/uL Hgb (11.4-16.0) gm/dL Hct (34.0-46.0) % Plt Count (150-450) k/uL Neutrophils # (1.3-7.7) k/uL Neutrophils # (Manual) (1.3-7.7) k/uL Monocytes # (0-1.0) k/uL Monocytes # (Manual) (0-1.0) k/uL ABG pH (7.35-7.45) ABG HCO3 (21-25) mmol/L VBG pH 7.11 L* (7.31-7.41) VBG pCO2 64 H (37-51) mmHg VBG HCO3 19 L (24-28) mmol/L Sodium 136 L (137-145) mmol/L Potassium 7.8 H* (3.5-5.1) mmol/L Carbon Dioxide 18 L (22-30) mmol/L BUN 19 H (7-17) mg/dL Creatinine 2.49 H (0.52-1.04) mg/dL Glucose (74-99) mg/dL POC Glucose (mg/dL) (75-99) mg/dL Plasma Lactic Acid Boo (0.7-2.0) mmol/L Calcium 8.1 L (8.4-10.2) mg/dL Ionized Calcium Apollo (4.5-5.3) mg/dL AST 963 H (14-36) U/L ALT 293 H (4-34) U/L Creatine Kinase 44510 H* (30-135) U/L CK-MB (CK-2) 173.0 H (0.0-2.4) ng/mL Troponin I 3.930 H* (0.000-0.034) ng/mL Total Protein (6.3-8.2) g/dL Albumin (3.5-5.0) g/dL Urine Appearance (Clear) Urine Protein (Negative) Urine Blood (Negative) Urine WBC (0-5) /hpf Amorphous Sediment (None) /hpf Hyaline Casts (0-2) /lpf Urine Mucus (None) /hpf Urine Methadone Screen (NotDetected) U Tricyclic Antidepress (NotDetected) U Benzodiazepines Scrn (NotDetected) Urine Cocaine Screen (NotDetected) U Marijuana (THC) Screen (NotDetected) 04/29/20 04/29/20 04/29/20 Range/Units 02:53 04:35 04:35 WBC (3.8-10.6) k/uL Hgb (11.4-16.0) gm/dL Hct (34.0-46.0) % Plt Count (150-450) k/uL Neutrophils # (1.3-7.7) k/uL Neutrophils # (Manual) (1.3-7.7) k/uL Monocytes # (0-1.0) k/uL Monocytes # (Manual) (0-1.0) k/uL ABG pH (7.35-7.45) ABG HCO3 (21-25) mmol/L VBG pH (7.31-7.41) VBG pCO2 (37-51) mmHg VBG HCO3 (24-28) mmol/L Sodium (137-145) mmol/L Potassium (3.5-5.1) mmol/L Carbon Dioxide (22-30) mmol/L BUN (7-17) mg/dL Creatinine (0.52-1.04) mg/dL Glucose (74-99) mg/dL POC Glucose (mg/dL) 107 H (75-99) mg/dL Plasma Lactic Acid Boo 4.2 H* (0.7-2.0) mmol/L Calcium (8.4-10.2) mg/dL Ionized Calcium Apollo (4.5-5.3) mg/dL AST (14-36) U/L ALT (4-34) U/L Creatine Kinase 18997 H* (30-135) U/L CK-MB (CK-2) (0.0-2.4) ng/mL Troponin I (0.000-0.034) ng/mL Total Protein (6.3-8.2) g/dL Albumin (3.5-5.0) g/dL Urine Appearance (Clear) Urine Protein (Negative) Urine Blood (Negative) Urine WBC (0-5) /hpf Amorphous Sediment (None) /hpf Hyaline Casts (0-2) /lpf Urine Mucus (None) /hpf Urine Methadone Screen (NotDetected) U Tricyclic Antidepress (NotDetected) U Benzodiazepines Scrn (NotDetected) Urine Cocaine Screen (NotDetected) U Marijuana (THC) Screen (NotDetected) 04/29/20 04/29/20 04/29/20 Range/Units 04:35 04:35 05:15 WBC 22.3 H (3.8-10.6) k/uL Hgb (11.4-16.0) gm/dL Hct 49.6 H (34.0-46.0) % Plt Count 137 L (150-450) k/uL Neutrophils # 19.5 H (1.3-7.7) k/uL Neutrophils # (Manual) (1.3-7.7) k/uL Monocytes # 1.1 H (0-1.0) k/uL Monocytes # (Manual) (0-1.0) k/uL ABG pH (7.35-7.45) ABG HCO3 (21-25) mmol/L VBG pH (7.31-7.41) VBG pCO2 (37-51) mmHg VBG HCO3 (24-28) mmol/L Sodium 136 L (137-145) mmol/L Potassium 6.5 H* (3.5-5.1) mmol/L Carbon Dioxide 20 L (22-30) mmol/L BUN 26 H (7-17) mg/dL Creatinine 2.18 H (0.52-1.04) mg/dL Glucose 105 H (74-99) mg/dL POC Glucose (mg/dL) (75-99) mg/dL Plasma Lactic Acid Boo (0.7-2.0) mmol/L Calcium 6.3 L* (8.4-10.2) mg/dL Ionized Calcium Apollo (4.5-5.3) mg/dL AST 2296 H (14-36) U/L ALT 640 H (4-34) U/L Creatine Kinase (30-135) U/L CK-MB (CK-2) (0.0-2.4) ng/mL Troponin I (0.000-0.034) ng/mL Total Protein 4.9 L (6.3-8.2) g/dL Albumin 2.5 L (3.5-5.0) g/dL Urine Appearance Cloudy H (Clear) Urine Protein 2+ H (Negative) Urine Blood Large H (Negative) Urine WBC 10 H (0-5) /hpf Amorphous Sediment Few H (None) /hpf Hyaline Casts 7 H (0-2) /lpf Urine Mucus Occasional H (None) /hpf Urine Methadone Screen (NotDetected) U Tricyclic Antidepress (NotDetected) U Benzodiazepines Scrn (NotDetected) Urine Cocaine Screen (NotDetected) U Marijuana (THC) Screen (NotDetected) 04/29/20 04/29/20 04/29/20 Range/Units 05:55 06:50 07:04 WBC (3.8-10.6) k/uL Hgb (11.4-16.0) gm/dL Hct (34.0-46.0) % Plt Count (150-450) k/uL Neutrophils # (1.3-7.7) k/uL Neutrophils # (Manual) (1.3-7.7) k/uL Monocytes # (0-1.0) k/uL Monocytes # (Manual) (0-1.0) k/uL ABG pH 7.26 L (7.35-7.45) ABG HCO3 19 L (21-25) mmol/L VBG pH (7.31-7.41) VBG pCO2 (37-51) mmHg VBG HCO3 (24-28) mmol/L Sodium (137-145) mmol/L Potassium (3.5-5.1) mmol/L Carbon Dioxide (22-30) mmol/L BUN (7-17) mg/dL Creatinine (0.52-1.04) mg/dL Glucose (74-99) mg/dL POC Glucose (mg/dL) 118 H (75-99) mg/dL Plasma Lactic Acid Boo (0.7-2.0) mmol/L Calcium (8.4-10.2) mg/dL Ionized Calcium Apollo 3.7 L (4.5-5.3) mg/dL AST (14-36) U/L ALT (4-34) U/L Creatine Kinase (30-135) U/L CK-MB (CK-2) (0.0-2.4) ng/mL Troponin I (0.000-0.034) ng/mL Total Protein (6.3-8.2) g/dL Albumin (3.5-5.0) g/dL Urine Appearance (Clear) Urine Protein (Negative) Urine Blood (Negative) Urine WBC (0-5) /hpf Amorphous Sediment (None) /hpf Hyaline Casts (0-2) /lpf Urine Mucus (None) /hpf Urine Methadone Screen (NotDetected) U Tricyclic Antidepress (NotDetected) U Benzodiazepines Scrn (NotDetected) Urine Cocaine Screen (NotDetected) U Marijuana (THC) Screen (NotDetected) 04/29/20 Range/Units 07:24 WBC (3.8-10.6) k/uL Hgb (11.4-16.0) gm/dL Hct (34.0-46.0) % Plt Count (150-450) k/uL Neutrophils # (1.3-7.7) k/uL Neutrophils # (Manual) (1.3-7.7) k/uL Monocytes # (0-1.0) k/uL Monocytes # (Manual) (0-1.0) k/uL ABG pH (7.35-7.45) ABG HCO3 (21-25) mmol/L VBG pH (7.31-7.41) VBG pCO2 (37-51) mmHg VBG HCO3 (24-28) mmol/L Sodium (137-145) mmol/L Potassium (3.5-5.1) mmol/L Carbon Dioxide (22-30) mmol/L BUN (7-17) mg/dL Creatinine (0.52-1.04) mg/dL Glucose (74-99) mg/dL POC Glucose (mg/dL) (75-99) mg/dL Plasma Lactic Acid Boo 2.1 H* (0.7-2.0) mmol/L Calcium (8.4-10.2) mg/dL Ionized Calcium Apollo (4.5-5.3) mg/dL AST (14-36) U/L ALT (4-34) U/L Creatine Kinase (30-135) U/L CK-MB (CK-2) (0.0-2.4) ng/mL Troponin I (0.000-0.034) ng/mL Total Protein (6.3-8.2) g/dL Albumin (3.5-5.0) g/dL Urine Appearance (Clear) Urine Protein (Negative) Urine Blood (Negative) Urine WBC (0-5) /hpf Amorphous Sediment (None) /hpf Hyaline Casts (0-2) /lpf Urine Mucus (None) /hpf Urine Methadone Screen (NotDetected) U Tricyclic Antidepress (NotDetected) U Benzodiazepines Scrn (NotDetected) Urine Cocaine Screen (NotDetected) U Marijuana (THC) Screen (NotDetected) Assessment and Plan Assessment: This is a 39-year-old female with no known past medical history was brought into the emergency room by EMS after she was found unresponsive by a friend at her own house with drug paraphernalia next to her. Patient was brought into the ER and was awake and alert. She was agitated and combative. She was admitted to the intensive care unit and subsequently had increased work of breathing and worsening respiratory status requiring sedation, intubation, mechanical ventilation. Patient is currently admitted and being aggressively treated further medical problems noted below. 1. Drug overdose: Urine toxicology screen positive for cocaine, marijuana, methadone, and benzodiazepine 2. Acute toxo metabolic encephalopathy 3. Acute kidney injury with hyperkalemia: Seen and evaluated by nephrology. 4. Severe rhabdomyolysis: Continue aggressive IV fluid hydration 5. Acute liver failure with hepatitis: Probably secondary to polysubstance abuse and severe rhabdo. I would obtain an acute viral hepatitis panel 6. Hypocalcemia, received multiple doses of IV calcium gluconate awaiting repeat lab work 7. Severe metabolic acidosis 8. Aspiration pneumonia: Started on broad-spectrum antibiotic with vancomycin and Zosyn. I would order blood cultures. 9. Lactic acidosis: Improved with aggressive IV fluid hydration 10. Acute hypoxic respiratory failure requiring intubation and mechanical venti lation 11. GI and DVT prophylaxis with IV Protonix and subcu heparin 12. CODE STATUS: Full code Patient is currently admitted to the ICU. She was seen and evaluated by multiple consultants including nephrology and newspaper subscription solicitor. Continue aggressive IV fluid hydration with normal saline at 200 mL per hour. Vent management per ICU team. Plan to titrate down FiO2 throughout the day. Currently on PEEP of 10 and FiO2 of 100%. Repeat lab work ordered for 5 PM. Today, I called her mother Nurys on the phone to update her about her daughter critical condition. She told me that nursing staff just got off the phone with her and she got a full update. She did not have any or questions to me. She has to be updated on her progress. I asked her briefly about CODE STATUS and she said that she wanted the patient to be full code in the event of a cardiac arrest.
[2020-04-29] MEDS ORDERED: CALCIUM GLUCONATE 2 GM in SODIUM CHLORIDE 0.9% 100 ML IVPB ONE ×2 (12:30→19:30)
[2020-04-29 14:01] LABS: Glucose,Whole Blood 114 mg/dL (75-99)
[2020-04-29 14:36] LABS: INR 1.1 (<1.2); Prothrombin Time 11.7 sec (9.0-12.0)
[2020-04-29] MEDS ORDERED: HYDROmorphone 1 MG/ML 1 ML SYRINGE IVP PRN (15:18)
--- NOTE | 2020-04-29 15:26 | CONS ---
CONSULTATION REASON FOR CONSULTATION: Elevated troponins. This is a 39-year-old lady brought by EMS for overdose. The patient's drug screen is positive for _meth, benzodiazepines, cocaine and marijuana. She was found by a friend lying down, unresponsive, had drug paraphernalia next to her. However after arrival she was found to be having significant elevation of total CPK suggestive of rhabdomyolysis. There is also elevated creatinine. The patient may have been lying down in that position for quite some time. There is also a mild troponin elevation. I was asked to see her with regards to troponin elevation for possibility whether this is a myocardial injury or not. It appears that the clinical picture suggests that patient does not have any myocardial injury and the elevated troponin is probably related to the rhabdomyolysis. Her echocardiogram revealed good systolic function without wall motion abnormalities and there is no pulmonary hypertension. At the time of my evaluation, she is intubated for some respiratory distress. She is also on a propofol drip. The patient's EKG revealed sinus mechanism, no significant arrhythmia on the lunchroom monitor. She appears to be at this time hemodynamically fairly stable. Her creatinine is elevated. She has some acute kidney injury probably. She has what seems to be acute hypoxic respiratory failure secondary to multiple substance abuse and has possible aspiration pneumonia. She is currently on a mechanical ventilator. Aspiration pneumonia should be considered. There is rhabdomyolysis, metabolic acidosis, acute kidney injury and also there are liver function abnormalities and possibility of this being related to her drug overdose should be considered. From a cardiac standpoint, her LV systolic function is good. EKG does not reveal acute changes and there is no evidence to suggest any acute myocardial injury. Her CPK was about 47,000 and troponin was 3.9 with normal LV function. Electrocardiogram revealed normal sinus rhythm, sinus tachycardia and minor right ventricular conduction delay. PAST MEDICAL HISTORY: Past medical history was not obtainable. We do not know if she is on any medications or her allergies at this point. On examination, patient is ventilated. Patient is on a mechanical ventilator. She is receiving some treatment for overdose. However, she is also on a propofol drip and antibiotics as well for what seems to be possible aspiration pneumonia. PHYSICAL EXAMINATION: On examination, blood pressure is about 118/70, pulse rate is about 90 per minute. HEENT: Unremarkable. Limited exam was performed. NECK: Supple. No JVD S1. Heart exam reveals S1, S2 heard normally. No significant murmurs. Lungs reveal diminished air entry assisted by the ventilator. Abdomen is soft. Lower extremities reveal diminished pulses. Central nervous system assessment was not performed. IMPRESSION: 1. Drug overdose, probably benzodiazepines. 2. Rhabdomyolysis. 3. Troponin elevation, not suggestive of myocardial injury. 4. History of hypoxemia respiratory failure on a ventilator. RECOMMENDATIONS: I am recommending that we continue hydration. Agree with neurology input. I would recommend that we add a small dose of metoprolol tartrate 12.5 mg and see how she does. Overall prognosis remains quite guarded given her multiple comorbid issues at this time. MMODL / IJN: [id number] / MTDD
[2020-04-29] MEDS ORDERED: WATER IV ONE ×2 (16:00)
[2020-04-29] MEDS ORDERED: DEXTROSE 5% IV ONE ×2 (16:00)
[2020-04-29] MEDS ORDERED: ACETYLCYSTEINE IV ONE ×2 (16:00)
[2020-04-29] MEDS: HEPARIN SODIUM,PORCINE 5,000 UNIT/ML 1 ML VIAL SQ SCH (16:50)
[2020-04-29 17:23] LABS: ABG HCO3 22 mmol/L (21-25); ABG Oxygen Saturation 92.7 % (94-97); ABG PCO2 45 mmHg (35-45); ABG PH 7.29 (7.35-7.45); ABG PO2 73 mmHg (83-108); ABG TCO2 23 mmol/L (19-24)
[2020-04-29 17:40] LABS: ALT 396 U/L (4-34); African American GFR (CKD) 77 (>60 ml/min/1.73 sqM); Albumin <1.0 g/dL (3.5-5.0); Alkaline Phosphatase <20 U/L (38-126); Anion Gap 4 mmol/L; Blood Urea Nitrogen 21 mg/dL (7-17); Carbon Dioxide 13 mmol/L (22-30); Chloride 123 mmol/L (98-107); Glucose 78 mg/dL (74-99); Non-African American GFR(CKD) 67 (>60 ml/min/1.73 sqM); Sodium 140 mmol/L (137-145); Total Bilirubin 0.2 mg/dL (0.2-1.3)
[2020-04-29] MEDS: DEXTROSE 5% IV SCH (17:40)
[2020-04-29] MEDS: WATER IV SCH (17:40)
[2020-04-29] MEDS: ACETYLCYSTEINE IV SCH (17:40)
[2020-04-29 17:52] LABS: AST 1030 U/L (14-36); Calcium 2.9 mg/dL (8.4-10.2)
[2020-04-29 18:02] LABS: Glucose,Whole Blood 192 mg/dL (75-99)
[2020-04-29] MEDS: HYDROmorphone 1 MG/ML 1 ML SYRINGE IVP PRN (18:08)
[2020-04-29 18:33] LABS: Creatine Kinase 61465 U/L (30-135)
[2020-04-29 19:08] LABS: African American GFR (CKD) 34 (>60 ml/min/1.73 sqM); Albumin 1.8 g/dL (3.5-5.0); Alkaline Phosphatase <20 U/L (38-126); Anion Gap 10 mmol/L; Blood Urea Nitrogen 37 mg/dL (7-17); Carbon Dioxide 19 mmol/L (22-30); Chloride 105 mmol/L (98-107); Glucose 129 mg/dL (74-99); Non-African American GFR(CKD) 29 (>60 ml/min/1.73 sqM); Potassium 5.6 mmol/L (3.5-5.1); Sodium 134 mmol/L (137-145); Total Bilirubin 0.6 mg/dL (0.2-1.3); Total Protein 3.9 g/dL (6.3-8.2)
[2020-04-29 19:11] LABS: Calcium 5.6 mg/dL (8.4-10.2)
[2020-04-29 19:18] LABS: ALT 819 U/L (4-34)
--- NOTE | 2020-04-29 19:25 | P.CNNES ---
History of Present Illness Consult date: 04/29/20 Requesting physician: Augustus Quiroga Reason for Consult: unequal pupils History of Present Illness: This is a 39-year-old woman who is a recovering drug abuser and supposedly on methadone that presented emergency department on 04/29/2020 after being found unresponsive. History is obtained from medical record as well as the patient nurse. Neurology is consulted for unequal pupils. It seems that the patient presented that via EMS since the patient was found unresponsive in the seems that she spent some time over her friend's house and possibly had done drugs there then went back to her other friend's house. The friend became suspicious when the that he noticed that the room light still on that late past her usual sleep time and upon checking on her the patient was laying on the floor towards her left side and was unresponsive. In the ED the patient responded the minimally to a dose of Narcan but then became combative and agitated and not cooperative to the primary team. Patient's urine drugs and was positive for drugs as mentioned below. She was found to have left-sided pneumonia as well as multiple electrolyte imbalance. Per the ICU nurse in the ICU with the patient was the ticket neck but was moving all extremities. As a result of her tachypneic and breathing in the 40's. She was intubated for respiratory support. She was on propofol of 50 mics per kilogram per minute and in ICU was noted that the patient had unequal pupils the right more than the left. CT of the head is reported as no acute hemorrhage, hydrocephalus or mass effect Patient toxicology screen was positive for methadone, tricyclic antidepressant, benzodiazepine, cocaine, marijuana. Serum alcohol was less than 10, acet aminophen was less than 10 and the salicylates are less than 1.0. Her initial white blood cell is 24.7 and a repeat is 22.3. Patient neutrophils was 19.5 Her sodium was 136 which is minimally low potassium was 6.5 with extremely elevated, the BUN was 26 on initial presentation creatinine was 2.18. The serum glucose was 105. The calcium was 6.3 and ionized calcium was 3.7. Her AST is 2296 and the ALT is 640. CK levels is 82,832. EKG is reported as sinus tachycardia. Nonspecific intraventricular conduction delay. Borderline EKG. Chest x-ray was reported as left sided pneumonia. Review of Systems Review of system is limited but the prone positive and negative as per HPI Past Medical History Past Medical History: Unable to Obtain History of Any Multi-Drug Resistant Organisms: None Reported, Unobtainable Past Surgical History: Orthopedic Surgery Additional Past Surgical History / Comment(s): Left leg surgery, hospital unknown. Past Psychological History: Anxiety, Depression Additional Psychological History / Comment(s): Per friend Smoking Status: Unknown if ever smoked Past Alcohol Use History: Daily Past Drug Use History: Heroin, IV Drug Use, Prescription Drug Abuse Additional Drug Use History / Comment(s): Per friend - Past Family History Mother Family Medical History: AICD/Pacemaker family Family Medical History: Unable to Obtain Medications and Allergies Home Medications Medication Instructions Recorded Confirmed Type Spectravite Ultra Women 18mg-0.4 1 tab PO DAILY 04/28/20 04/28/20 History Tablet Allergies Allergy/AdvReac Type Severity Reaction Status Date / Time Unable to Assess Allergy Verified 04/28/20 22:40 Physical Examination - Vital Signs Vital Signs: Vital Signs Temp Pulse Resp BP Pulse Ox 04/29/20 18:00 104 H 28 H 91 L 04/29/20 17:00 99 28 H 119/83 93 L 04/29/20 16:09 97 04/29/20 16:00 100.2 F H 96 27 H 92 L 04/29/20 15:52 96 04/29/20 15:00 97 24 91 L 04/29/20 14:00 98 22 92 L 04/29/20 13:00 96 25 H 90 L 04/29/20 12:27 98 04/29/20 12:02 98 04/29/20 12:00 100.4 F H 96 21 91 L 04/29/20 11:00 98 21 94 L 04/29/20 10:00 97 26 H 91 L 04/29/20 09:30 98 25 H 90 L 04/29/20 09:00 101 H 25 H 115/79 89 L 04/29/20 08:50 97 04/29/20 08:38 102 H 04/29/20 08:30 103 H 29 H 109/81 91 L 04/29/20 08:00 101.4 F H 102 H 25 H 116/78 94 L 04/29/20 07:30 99 31 H 99/57 95 04/29/20 07:15 98 30 H 86/72 94 L 04/29/20 07:00 98 32 H 99/63 94 L 04/29/20 06:45 98 35 H 95/48 93 L 04/29/20 06:30 98 34 H 85/48 93 L 04/29/20 06:15 96 37 H 78/31 93 L 04/29/20 06:00 98 35 H 95 04/29/20 05:45 99 37 H 96/69 94 L 04/29/20 05:30 101 H 40 H 72/53 93 L 04/29/20 05:10 101 H 35 H 89/56 95 04/29/20 05:00 105 H 40 H 103/53 93 L 04/29/20 04:50 105 H 29 H 103/53 95 04/29/20 04:40 101.6 F H 105 H 37 H 80/39 96 04/29/20 04:39 106 H 38 H 80/39 96 04/29/20 04:20 116 H 22 151/81 95 04/29/20 04:10 114 H 21 105/54 94 L 04/29/20 04:00 112 H 20 90 L 04/29/20 03:50 114 H 20 114/95 98 04/29/20 03:40 109 H 19 160/97 90 L 04/29/20 03:30 112 H 33 H 160/97 93 L 04/29/20 03:20 112 H 21 117/102 87 L 04/29/20 03:10 112 H 44 H 117/102 89 L 04/29/20 03:00 111 H 41 H 117/102 90 L 04/29/20 02:52 89 L 04/29/20 02:30 112 H 20 138/74 94 L 04/29/20 02:14 102.0 F H 110 H 24 133/99 94 L 04/29/20 02:00 110 H 24 90/60 94 L 04/29/20 01:00 112 H 24 95/80 94 L 04/29/20 00:00 75 24 112/75 94 L 04/28/20 23:00 76 22 103/67 91 L 04/28/20 22:46 12 04/28/20 22:35 98.3 F 66 12 109/55 92 L Intake and Output 04/29/20 04/29/20 04/29/20 06:59 14:59 22:59 Intake Total 266.974 0673.546 1921 Output Total 220 335 165 Balance 067.747 6207.546 1756 Intake: IV 800 1600 800 Sodium Chloride 0.9% 1, 800 1600 800 000 ml @ 200 mls/hr IV . Q5H [facility] Rx#:[id number] Intake, IV Titration 42.468 282.757 9190 Amount ACETAMINOPHEN IV (For NPO 100 ) 1,000 mg In Empty Bag 1 bag @ 400 mls/hr IVPB ONCE ONE Rx#:[id number] Acetylcysteine IV 18,600 200 mg In Dextrose 5% in Water 200 ml @ 293 mls/hr IV ONCE ONE Rx#: [id number] Calcium Gluconate 1 gm In 100 Sodium Chloride 0.9% 100 ml @ 100 mls/hr IVPB ONCE ONE Rx#:[id number] Calcium Gluconate 2 gm In 100 Sodium Chloride 0.9% 100 ml @ 100 mls/hr IVPB ONCE ONE Rx#:[id number] Dextrose 5% in Water 1, 375 300 000 ml @ 75 mls/hr IV . [id number] SPIKE with Sodium Bicarb (1 Meq/ml) 150 ml Rx#:[id number] Piperacillin-Tazobactam 3 100 100 .375 gm In Sodium Chloride 0.9% 100 ml @ 25 mls/hr IVPB Q8HR [facility] Rx# :[id number] Vancomycin 2,000 mg In 501 Sodium Chloride 0.9% 500 ml 500 ml @ 167 mls/hr IVPB Q24H [facility] Rx#: [id number] propofoL 1,000 mg In 42.468 199.546 Empty Bag 1 bag @ Titrate IV .Q0M [facility] Rx#: [id number] Tube Feeding 20 Output: Urine 220 335 165 Other: Voiding Method Indwelling Catheter Indwelling Catheter # Voids 0 Weight 123.8 kg 123.8 kg ABP, PAP, CO, CI - Last 8 Hours Arterial Blood Pressure 131/67 Arterial Blood Pressure 128/75 Arterial Blood Pressure 130/75 Arterial Blood Pressure 129/75 Arterial Blood Pressure 113/76 Arterial Blood Pressure 113/77 Arterial Blood Pressure 129/81 GENERAL: The patient is lying in bed and is not in acute distress. She is on IV propopfol 50mcg/kg/min. HENT: No nuchal rdigity. Supple neck. CHEST: The heart rate is regular rate rhythm. No murmurs to auscultation. LUNG: Clear to auscultation bilaterally no wheezing noted throughout. Not labored breathing. ABDOMEN/GI: Bowel sounds present in all 4 quadrants. No tenderness to palpation throughout. NEUROLOGICAL: Limited since patient is intubated on ventilator and on IV propofol 50m cg/kg/min. Higher mental function:Comatose. GCS3 (E1,VT1,M1). Pupils: Primary gaze are midline. Right pupil is 4-5mm and let is 2-3mm. Motor: Unable to assess. Cerebellum: Unable to assess. Sensation: Unable to assess. Reflexes (right/left): 2+ throughout. Plantars are downgoing bilaterally. Results Albert virus PCR was not detected. Coagulation study: PT is 11.7 INR is 1.1. Urine analysis appears cloudy, hyaline casts is 83, urine mucus is a few, urine is nondetected. Repeated urinalysis shows a large amount of blood, 2-D echo was reported as resting tachycardia. Left ventricle size is normal. Mild concentric left ventricular hypertrophy. Left atrium is normal in size. - Laboratory Findings CBC and BMP: 04/29/20 04:35 04/29/20 16:55 Abnormal Lab Findings: Abnormal Labs 04/28/20 04/28/20 04/28/20 23:00 23:00 23:55 WBC 24.7 H Hgb 16.4 H Hct 51.6 H Plt Count Neutrophils # Neutrophils # (Manual) 19.50 H Monocytes # Monocytes # (Manual) 1.48 H ABG pH ABG pO2 ABG HCO3 ABG O2 Saturation VBG pH VBG pCO2 VBG HCO3 Sodium Potassium Chloride Carbon Dioxide BUN Creatinine Glucose POC Glucose (mg/dL) Plasma Lactic Acid Boo 9.6 H* Calcium Ionized Calcium Apollo AST ALT Alkaline Phosphatase Creatine Kinase CK-MB (CK-2) Troponin I Total Protein Albumin Urine Appearance Cloudy H Urine Protein 1+ H Urine Blood Urine WBC Amorphous Sediment Hyaline Casts 83 H Urine Mucus Few H Urine Methadone Screen Detected H U Tricyclic Antidepress Detected H U Benzodiazepines Scrn Detected H Urine Cocaine Screen Detected H U Marijuana (THC) Screen Detected H 04/28/20 04/28/20 04/28/20 23:55 23:55 23:55 WBC Hgb Hct Plt Count Neutrophils # Neutrophils # (Manual) Monocytes # Monocytes # (Manual) ABG pH ABG pO2 ABG HCO3 ABG O2 Saturation VBG pH 7.11 L* VBG pCO2 64 H VBG HCO3 19 L Sodium 136 L Potassium 7.8 H* Chloride Carbon Dioxide 18 L BUN 19 H Creatinine 2.49 H Glucose POC Glucose (mg/dL) Plasma Lactic Acid Boo Calcium 8.1 L Ionized Calcium Apollo AST 963 H ALT 293 H Alkaline Phosphatase Creatine Kinase 71000 H* CK-MB (CK-2) 173.0 H Troponin I 3.930 H* Total Protein Albumin Urine Appearance Urine Protein Urine Blood Urine WBC Amorphous Sediment Hyaline Casts Urine Mucus Urine Methadone Screen U Tricyclic Antidepress U Benzodiazepines Scrn Urine Cocaine Screen U Marijuana (THC) Screen 04/29/20 04/29/20 04/29/20 02:53 04:35 04:35 WBC Hgb Hct Plt Count Neutrophils # Neutrophils # (Manual) Monocytes # Monocytes # (Manual) ABG pH ABG pO2 ABG HCO3 ABG O2 Saturation VBG pH VBG pCO2 VBG HCO3 Sodium Potassium Chloride Carbon Dioxide BUN Creatinine Glucose POC Glucose (mg/dL) 107 H Plasma Lactic Acid Boo 4.2 H* Calcium Ionized Calcium Apollo AST ALT Alkaline Phosphatase Creatine Kinase 50583 H* CK-MB (CK-2) Troponin I Total Protein Albumin Urine Appearance Urine Protein Urine Blood Urine WBC Amorphous Sediment Hyaline Casts Urine Mucus Urine Methadone Screen U Tricyclic Antidepress U Benzodiazepines Scrn Urine Cocaine Screen U Marijuana (THC) Screen 04/29/20 04/29/20 04/29/20 04:35 04:35 05:15 WBC 22.3 H Hgb Hct 49.6 H Plt Count 137 L Neutrophils # 19.5 H Neutrophils # (Manual) Monocytes # 1.1 H Monocytes # (Manual) ABG pH ABG pO2 ABG HCO3 ABG O2 Saturation VBG pH VBG pCO2 VBG HCO3 Sodium 136 L Potassium 6.5 H* Chloride Carbon Dioxide 20 L BUN 26 H Creatinine 2.18 H Glucose 105 H POC Glucose (mg/dL) Plasma Lactic Acid Boo Calcium 6.3 L* Ionized Calcium Apollo AST 2296 H ALT 640 H Alkaline Phosphatase Creatine Kinase CK-MB (CK-2) Troponin I Total Protein 4.9 L Albumin 2.5 L Urine Appearance Cloudy H Urine Protein 2+ H Urine Blood Large H Urine WBC 10 H Amorphous Sediment Few H Hyaline Casts 7 H Urine Mucus Occasional H Urine Methadone Screen U Tricyclic Antidepress U Benzodiazepines Scrn Urine Cocaine Screen U Marijuana (THC) Screen 04/29/20 04/29/20 04/29/20 05:55 06:50 07:04 WBC Hgb Hct Plt Count Neutrophils # Neutrophils # (Manual) Monocytes # Monocytes # (Manual) ABG pH 7.26 L ABG pO2 ABG HCO3 19 L ABG O2 Saturation VBG pH VBG pCO2 VBG HCO3 Sodium Potassium Chloride Carbon Dioxide BUN Creatinine Glucose POC Glucose (mg/dL) 118 H Plasma Lactic Acid Boo Calcium Ionized Calcium Apollo 3.7 L AST ALT Alkaline Phosphatase Creatine Kinase CK-MB (CK-2) Troponin I Total Protein Albumin Urine Appearance Urine Protein Urine Blood Urine WBC Amorphous Sediment Hyaline Casts Urine Mucus Urine Methadone Screen U Tricyclic Antidepress U Benzodiazepines Scrn Urine Cocaine Screen U Marijuana (THC) Screen 04/29/20 04/29/20 04/29/20 07:24 11:08 13:59 WBC Hgb Hct Plt Count Neutrophils # Neutrophils # (Manual) Monocytes # Monocytes # (Manual) ABG pH ABG pO2 ABG HCO3 ABG O2 Saturation VBG pH VBG pCO2 VBG HCO3 Sodium 136 L Potassium Chloride 113 H Carbon Dioxide 18 L BUN 28 H Creatinine 1.82 H Glucose 116 H POC Glucose (mg/dL) 114 H Plasma Lactic Acid Boo 2.1 H* Calcium 4.9 L* Ionized Calcium Apollo AST ALT Alkaline Phosphatase Creatine Kinase CK-MB (CK-2) Troponin I Total Protein Albumin Urine Appearance Urine Protein Urine Blood Urine WBC Amorphous Sediment Hyaline Casts Urine Mucus Urine Methadone Screen U Tricyclic Antidepress U Benzodiazepines Scrn Urine Cocaine Screen U Marijuana (THC) Screen 04/29/20 04/29/20 04/29/20 16:55 16:55 17:17 WBC Hgb Hct Plt Count Neutrophils # Neutrophils # (Manual) Monocytes # Monocytes # (Manual) ABG pH 7.29 L ABG pO2 73 L ABG HCO3 ABG O2 Saturation 92.7 L VBG pH VBG pCO2 VBG HCO3 Sodium Potassium 3.0 L Chloride 123 H Carbon Dioxide 13 L BUN 21 H Creatinine Glucose POC Glucose (mg/dL) Plasma Lactic Acid Boo Calcium 2.9 L* Ionized Calcium Apollo AST 1030 H ALT 396 H Alkaline Phosphatase <20 L Creatine Kinase 15819 H* CK-MB (CK-2) 180.0 H Troponin I Total Protein 2.0 L Albumin <1.0 L Urine Appearance Urine Protein Urine Blood Urine WBC Amorphous Sediment Hyaline Casts Urine Mucus Urine Methadone Screen U Tricyclic Antidepress U Benzodiazepines Scrn Urine Cocaine Screen U Marijuana (THC) Screen 04/29/20 18:00 WBC Hgb Hct Plt Count Neutrophils # Neutrophils # (Manual) Monocytes # Monocytes # (Manual) ABG pH ABG pO2 ABG HCO3 ABG O2 Saturation VBG pH VBG pCO2 VBG HCO3 Sodium Potassium Chloride Carbon Dioxide BUN Creatinine Glucose POC Glucose (mg/dL) 192 H Plasma Lactic Acid Boo Calcium Ionized Calcium Apollo AST ALT Alkaline Phosphatase Creatine Kinase CK-MB (CK-2) Troponin I Total Protein Albumin Urine Appearance Urine Protein Urine Blood Urine WBC Amorphous Sediment Hyaline Casts Urine Mucus Urine Methadone Screen U Tricyclic Antidepress U Benzodiazepines Scrn Urine Cocaine Screen U Marijuana (THC) Screen Assessment and Plan Assessment: Altered mental status due to toxic metabolic encephalopathy (durg oversode with UDS positive for coaine, marijuana, methadone and benzodizepine) and multiple electrolyte imbalance LFTS, hypocalcemia, REGLA. Also component of likely aspiration pneumonia Anisocoria (right pupil is 3-4mm and left 2-3mm). Unknown exact cause but could be due to drug use (cocaine can cause vasoconstriction) Acute kidney insufficiency with hyperkalemia Rhabdomyolysis Acute liver failure (AST > ALT)--trending down Aspiration pneumonia Acute hypoxic respiratory failure requiring intubation and mechanical v entilation Plan: Ordered routine EEG. I will not start the patient on antiepileptic drug unless there is applicable from discharge or seizure on the EEG. If the patient continues to have anisocoria by tomorrow I'll get further imaging such as CTA of the head and neck to rule out any vascular abnormality as a cause of the polysubstance use (cocaine can cause vasoconstriction). Possibly even will consider MRI of the brain if the patient becomes more stable and she continues to have anisocoria I started the patient on thiamine 100 mg IV daily. I ordered TSH level. Nephrology is on board. Recommend psychiatry consultation once the patient is more awake. We'll defer the rest of the medical management to the primary team as well as ICU team. The plan is discussed with the patient's nurse. Thank you for the consultation. Jerome Quiroga M.D. Neuro-hospitalist Time with Patient: Greater than 30
[2020-04-29 19:29] LABS: AST 2012 U/L (14-36)
[2020-04-29 20:30] LABS: Creatine Kinase 125476 U/L (30-135)
[2020-04-29] MEDS: THIAMINE 100 MG/ML 2 ML VIAL IVP SCH (20:49)
[2020-04-29 23:49] LABS: Glucose,Whole Blood 141 mg/dL (75-99)
[2020-04-30] MEDS: DEXTROSE 5% IN WATER 1,000 ML with SODIUM BICARB (1 MEQ/ML) 150 ML IV SCH (00:10)
[2020-04-30] MEDS: PIPERACILLIN-TAZOBACTAM 3.375 GM in SODIUM CHLORIDE 0.9% 100 ML IVPB SCH ×3 (00:10→16:54)
[2020-04-30] MEDS: HEPARIN SODIUM,PORCINE 5,000 UNIT/ML 1 ML VIAL SQ SCH ×3 (00:11→16:54)
[2020-04-30] MEDS: INSULIN ASPART (NovoLOG) 100 UNIT/ML VIAL SQ SCH ×5 (00:11→23:59)
[2020-04-30] MEDS: SODIUM CHLORIDE 0.9% 1,000 ML IV SCH ×5 (00:11→21:51)
[2020-04-30] MEDS: HYDROmorphone 1 MG/ML 1 ML SYRINGE IVP PRN (03:19)
[2020-04-30 04:19] LABS: Basophils % (A) 0 %; Eosinophils # (A) 0.2 k/uL (0-0.7); Eosinophils % (A) 1 %; HCT 41.9 % (34.0-46.0); HGB 14.9 gm/dL (11.4-16.0); Lymphocytes # (A) 1.4 k/uL (1.0-4.8); Lymphocytes % (A) 9 %; MCH 33.1 pg (25.0-35.0); MCHC 35.6 g/dL (31.0-37.0); MCV 93.2 fL (80.0-100.0); Mean Platelet Volume 7.9; Monocytes # (A) 0.6 k/uL (0-1.0); Monocytes % (A) 4 %; Neutrophils # (A) 13.4 k/uL (1.3-7.7); Neutrophils % (A) 85 %; Platelet Count 119 k/uL (150-450); RDW 13.2 % (11.5-15.5); WBC 15.7 k/uL (3.8-10.6)
[2020-04-30 04:38] LABS: Albumin 1.9 g/dL (3.5-5.0); Magnesium 1.9 mg/dL (1.6-2.3); Phosphorus 6.4 mg/dL (2.5-4.5); Potassium 4.8 mmol/L (3.5-5.1); Total Bilirubin 0.7 mg/dL (0.2-1.3); Total Protein 3.9 g/dL (6.3-8.2)
[2020-04-30 05:26] LABS: ABG Base Excess -5.5 mmol/L; ABG HCO3 21 mmol/L (21-25); ABG Oxygen Saturation 98.8 % (94-97); ABG PCO2 43 mmHg (35-45); ABG PO2 128 mmHg (83-108); ABG TCO2 22 mmol/L (19-24); Allen Test Performed? Yes
[2020-04-30] MEDS: DEXTROSE 5% IV SCH ×2 (05:35→17:43)
[2020-04-30] MEDS: ACETYLCYSTEINE IV SCH ×2 (05:35→17:43)
[2020-04-30] MEDS: WATER IV SCH ×2 (05:35→17:43)
[2020-04-30 05:36] LABS: Glucose,Whole Blood 159 mg/dL (75-99)
[2020-04-30 05:42] LABS: Calcium 5.8 mg/dL (8.4-10.2)
[2020-04-30] MEDS: IPRATROPIUM-ALBUTEROL 3 ML NEB INHALATION SCH ×4 (07:25→19:22)
--- NOTE | 2020-04-30 07:42 | XR ---
EXAMINATION TYPE: XR chest 1V portable DATE OF EXAM: 04/30/2020 COMPARISON: 04/29/2020 HISTORY: Shortness of breath TECHNIQUE: Single frontal view of the chest is obtained. FINDINGS: ET and NG tube stable. Left-sided consolidation and pleural effusion stable. Cardiomegaly pneumothorax. Small left pleural effusion excluded. Subsegmental changes in the right stable. IMPRESSION: 1. Stable left-sided infiltrate with pleural effusion.
[2020-04-30] MEDS: CHLORHEXIDINE GLUCONATE 15 ML CUP MUCOUS MEM SCH ×2 (09:00→21:49)
[2020-04-30] MEDS: METOPROLOL TARTRATE 25 MG TAB PO SCH ×3 (09:01→21:49)
[2020-04-30] MEDS: PANTOPRAZOLE 40 MG/10 ML VIAL IVP SCH ×2 (09:01→21:50)
[2020-04-30] MEDS: THIAMINE 100 MG/ML 2 ML VIAL IVP SCH (09:01)
--- NOTE | 2020-04-30 09:21 | PN ---
PROGRESS NOTE Mrs. Soto is in a sinus rhythm. She has drug overdose, rhabdomyolysis, developing worsening renal failure. She is also having some sinus tachycardia. Urine output is scanty and there is a lot of residue in the urine. PHYSICAL EXAMINATION: Vitals are stable. S1, S2 heard normally. Lungs reveal bilateral ventilator breath sounds. Abdomen is soft. Lower extremities reveal diminished pulses. The patient is on a Diprivan drip. Central nervous system assessment is not possible. Her creatinine is going up. Urine output is decreasing. RECOMMENDATIONS: I am recommending that we increase the metoprolol to 25 mg t.i.d. continue all other medications as she is now receiving. I will see her as needed. Thank you very much for the consult. MMODL / IJN: [id number] /
--- NOTE | 2020-04-30 09:56 | P.PN ---
Subjective Progress Note Date: 04/30/20 Principal diagnosis: Respiratory failure. A 39-year-old woman, brought in by EMS, for overdose. The patient's drug screen was positive for methamphetamines, benzodiazepines, cocaine, marijuana. The patient apparently was found by a friend, lying down unresponsive. She apparen tly had drug paraphernalia next to her, including a crack pipe. The patient apparently did arouse to tactile stimulus, but did not speak clearly. No additional history can be elicited. Apparently sometime this morning, his of worsening respiratory status, my partner was called by the ICU nurse, the patient was intubated on April 29. This was for respiratory distress. There was some concern about aspiration pneumonia. Currently, she remains on the mechanical ventilator. She is on the volume assist control mode, rate of 20, tidal volume 400, FiO2 100%, and PEEP of 5. On those settings, the pO2 was 93, pCO2 42, and pH 7.26. She's getting saline at 200 mL an hour, and propofol at 45 mcg/kg/m. Because of the increasing creatine kinase, the patient will get a sodium bicarbonate IV. We will put 3 ampules of sodium bicarbonate and D5W and run at 75 mL an hour. In addition, we'll increase the PEEP from 5-10, and try to wean the FiO2. We'll also start the patient on tube feeds, and maintain the Zosyn for suspected aspiration pneumonia. Interestingly, the nurse points out multiple scratches on her left facial area, and multiple bruises and scratches in the perineal area. A small blood blister was also seen in the area of the mons pubis. Progress note dated 04/30/2020. As is a 39-year-old female brought in EMS for overdose. Her drug screen was positive for benzodiazepines, cocaine, marijuana, and try cyclic antidepressants. The patient was found by a friend lying down, and she was unresponsive. She was brought to the emergency room, and then transferred up to the ICU. Yesterday, early in the morning, she was intubated and mechanically ventilated. Her oxygenation was poor, so we had increased the PEEP up to 15. In addition, later that day, the patient was found to be dyssynchronous with the mechanical ventilator, and we switched the modality from volume assist control, to VC plus. Her current settings include a targeted tidal volume 400, and inspiratory time of 0.8 seconds, FiO2 of 70%, PEEP of 15, and rate of 20. Her most recent arterial blood gases show a PaO2 of 128, PaCO2 43, and pH 7.3. The patient's on saline at 200 mL an hour, D5W, with 3 ampules of sodium bicarbonate at 75 mL an hour, propofol 50 mcg/kg/m, Mucomyst as per poison control, and vital high protein at 20 mL an hour, with a goal of 26 mL now. We are going to stop the bicarbonate drip at noon. Her pH is now up to 7.3. Laboratory data includes a white count of 15.7, hemoglobin of 14.9, hematocrit of 41.9, and a platelet count of 119,000. Sodium is 135, potassium 4.8, chlorides 101, CO2 20, anion gap 14, BUN 43, and creatinine 2.52. AST is 2103, ALT is 888, and creati ne kinase is 115,294. Chest x-ray shows a left-sided infiltrate with pleural effusion. Objective - Vital Signs Vital signs: Vital Signs Temp 98.4 F 04/30/20 08:00 Pulse 111 H 04/30/20 09:00 Resp 24 04/30/20 09:00 BP 160/117 04/30/20 05:00 Pulse Ox 94 L 04/30/20 09:00 Intake & Output 04/29/20 04/30/20 04/30/20 18:59 06:59 18:59 Intake Total 4595.546 4000.971 1103.515 Output Total 500 355 110 Balance 4095.546 3645.971 993.515 Weight 123.8 kg 128.5 kg Intake: IV 2400 2400 600 Sodium Chloride 0.9% 1, 2400 2400 600 000 ml @ 200 mls/hr IV . Q[facility]H [facility] Rx#:[id number] Intake, IV Titration 2175.546 1360.971 413.515 Amount ACETAMINOPHEN IV (For NPO 100 ) 1,000 mg In Empty Bag 1 bag @ 400 mls/hr IVPB ONCE ONE Rx#:[id number] Acetylcysteine IV 18,600 200 mg In Dextrose 5% in Water 200 ml @ 293 mls/hr IV ONCE ONE Rx#: [id number] Calcium Gluconate 1 gm In 100 Sodium Chloride 0.9% 100 ml @ 100 mls/hr IVPB ONCE ONE Rx#:[id number] Calcium Gluconate 2 gm In 100 100 Sodium Chloride 0.9% 100 ml @ 100 mls/hr IVPB ONCE ONE Rx#:[id number] Dextrose 5% in Water 1, 675 900 225 000 ml @ 75 mls/hr IV . [id number] SPIKE with Sodium Bicarb (1 Meq/ml) 150 ml Rx#:[id number] Dextrose 5% in Water 500 103.34 ml @ 51.667 mls/hr IV . Q12H SPIKE with Acetylcysteine IV 24,000 mg Rx#:[id number] Piperacillin-Tazobactam 3 200 100 .375 gm In Sodium Chloride 0.9% 100 ml @ 25 mls/hr IVPB Q8HR [facility] Rx# :[id number] Vancomycin 2,000 mg In 501 Sodium Chloride 0.9% 500 ml 500 ml @ 167 mls/hr IVPB Q24H [facility] Rx#: [id number] propofoL 1,000 mg In 299.546 260.971 85.175 Empty Bag 1 bag @ Titrate IV .Q0M [facility] Rx#: [id number] Tube Feeding 20 150 60 Other 90 30 Output: Urine 500 355 110 Other: Voiding Method Indwelling Catheter Indwelling Catheter ABP, PAP, CO, CI - Last Documented Arterial Blood Pressure 155/92 - Exam The patient is intubated and mechanically ventilated with an orally placed endotracheal tube and NG tube. HEENT examination is grossly unremarkable. There are some scratches on the left side of her facial area. Neck is supple full range of motion. No adenopathy or thyromegaly, or neck vein distention. Cardiovascular examination reveals regular rhythm rate. Heart sounds are distant. S1-S2 normal. No murmur. Heart rate 111 bpm. Pulmonary examination reveals bilateral coarse rhonchi. Breath sounds equal. No wheezes or crackles. Abdomen is obese. Bowel sounds are not noted. Extremities are intact. No cyanosis clubbing or edema. Skin reveals the scratches on the left sided facial area, and scratches and bruises in the perineal area. Neurologic examination cannot be adequately assessed. - Labs CBC & Chem 7: 04/30/20 04:05 04/30/20 04:05 Labs: Abnormal Lab Results - Last 24 Hours (Table) 03/04/29/20 04/29/20 Range/Units 11:08 11:08 13:59 WBC (3.8-10.6) k/uL Plt Count (150-450) k/uL Neutrophils # (1.3-7.7) k/uL ABG pH (7.35-7.45) ABG pO2 (83-108) mmHg ABG O2 Saturation (94-97) % Sodium 136 L (137-145) mmol/L Potassium (3.5-5.1) mmol/L Chloride 113 H (98-107) mmol/L Carbon Dioxide 18 L (22-30) mmol/L BUN 28 H (7-17) mg/dL Creatinine 1.82 H (0.52-1.04) mg/dL Glucose 116 H (74-99) mg/dL POC Glucose (mg/dL) 114 H (75-99) mg/dL Calcium 4.9 L* (8.4-10.2) mg/dL Phosphorus (2.5-4.5) mg/dL AST (14-36) U/L ALT (4-34) U/L Alkaline Phosphatase (38-126) U/L Creatine Kinase (30-135) U/L CK-MB (CK-2) (0.0-2.4) ng/mL Total Protein (6.3-8.2) g/dL Albumin (3.5-5.0) g/dL Procalcitonin 33.68 H (0.02-0.09) ng/mL 04/29/20 04/29/20 04/29/20 Range/Units 16:55 16:55 17:17 WBC (3.8-10.6) k/uL Plt Count (150-450) k/uL Neutrophils # (1.3-7.7) k/uL ABG pH 7.29 L (7.35-7.45) ABG pO2 73 L (83-108) mmHg ABG O2 Saturation 92.7 L (94-97) % Sodium (137-145) mmol/L Potassium 3.0 L (3.5-5.1) mmol/L Chloride 123 H (98-107) mmol/L Carbon Dioxide 13 L (22-30) mmol/L BUN 21 H (7-17) mg/dL Creatinine (0.52-1.04) mg/dL Glucose (74-99) mg/dL POC Glucose (mg/dL) (75-99) mg/dL Calcium 2.9 L* (8.4-10.2) mg/dL Phosphorus (2.5-4.5) mg/dL AST 1030 H (14-36) U/L ALT 396 H (4-34) U/L Alkaline Phosphatase <20 L (38-126) U/L Creatine Kinase 61877 H* (30-135) U/L CK-MB (CK-2) 180.0 H (0.0-2.4) ng/mL Total Protein 2.0 L (6.3-8.2) g/dL Albumin <1.0 L (3.5-5.0) g/dL Procalcitonin (0.02-0.09) ng/mL 04/29/20 04/29/20 04/29/20 Range/Units 18:00 18:03 23:48 WBC (3.8-10.6) k/uL Plt Count (150-450) k/uL Neutrophils # (1.3-7.7) k/uL ABG pH (7.35-7.45) ABG pO2 (83-108) mmHg ABG O2 Saturation (94-97) % Sodium 134 L (137-145) mmol/L Potassium 5.6 H (3.5-5.1) mmol/L Chloride (98-107) mmol/L Carbon Dioxide 19 L (22-30) mmol/L BUN 37 H (7-17) mg/dL Creatinine 2.06 H (0.52-1.04) mg/dL Glucose 129 H (74-99) mg/dL POC Glucose (mg/dL) 192 H 141 H (75-99) mg/dL Calcium 5.6 L* (8.4-10.2) mg/dL Phosphorus (2.5-4.5) mg/dL AST 2012 H (14-36) U/L ALT 819 H (4-34) U/L Alkaline Phosphatase <20 L (38-126) U/L Creatine Kinase 400516 H* (30-135) U/L CK-MB (CK-2) (0.0-2.4) ng/mL Total Protein 3.9 L (6.3-8.2) g/dL Albumin 1.8 L (3.5-5.0) g/dL Procalcitonin (0.02-0.09) ng/mL 04/30/20 04/30/20 04/30/20 Range/Units 04:05 04:05 05:22 WBC 15.7 H (3.8-10.6) k/uL Plt Count 119 L (150-450) k/uL Neutrophils # 13.4 H (1.3-7.7) k/uL ABG pH 7.30 L (7.35-7.45) ABG pO2 128 H (83-108) mmHg ABG O2 Saturation 98.8 H (94-97) % Sodium 135 L (137-145) mmol/L Potassium (3.5-5.1) mmol/L Chloride (98-107) mmol/L Carbon Dioxide 20 L (22-30) mmol/L BUN 43 H (7-17) mg/dL Creatinine 2.52 H (0.52-1.04) mg/dL Glucose 132 H (74-99) mg/dL POC Glucose (mg/dL) (75-99) mg/dL Calcium 5.8 L* (8.4-10.2) mg/dL Phosphorus 6.4 H (2.5-4.5) mg/dL AST 2103 H (14-36) U/L ALT 888 H (4-34) U/L Alkaline Phosphatase (38-126) U/L Creatine Kinase 204534 H* (30-135) U/L CK-MB (CK-2) (0.0-2.4) ng/mL Total Protein 3.9 L (6.3-8.2) g/dL Albumin 1.9 L (3.5-5.0) g/dL Procalcitonin (0.02-0.09) ng/mL 04/30/20 Range/Units 05:34 WBC (3.8-10.6) k/uL Plt Count (150-450) k/uL Neutrophils # (1.3-7.7) k/uL ABG pH (7.35-7.45) ABG pO2 (83-108) mmHg ABG O2 Saturation (94-97) % Sodium (137-145) mmol/L Potassium (3.5-5.1) mmol/L Chloride (98-107) mmol/L Carbon Dioxide (22-30) mmol/L BUN (7-17) mg/dL Creatinine (0.52-1.04) mg/dL Glucose (74-99) mg/dL POC Glucose (mg/dL) 159 H (75-99) mg/dL Calcium (8.4-10.2) mg/dL Phosphorus (2.5-4.5) mg/dL AST (14-36) U/L ALT (4-34) U/L Alkaline Phosphatase (38-126) U/L Creatine Kinase (30-135) U/L CK-MB (CK-2) (0.0-2.4) ng/mL Total Protein (6.3-8.2) g/dL Albumin (3.5-5.0) g/dL Procalcitonin (0.02-0.09) ng/mL Assessment and Plan Assessment: Acute hypoxemic respiratory failure, secondary to polysubstance abuse, and likely aspiration pneumonia. Patient intubated and mechanically ventilated on 04/29/2020. Possible aspiration pneumonia, left lung. Probably substance overdose, including benzodiazepines, tricyclic antidepressants, cocaine, and marijuana. Obesity. Rhabdomyolysis. Anion gap metabolic acidosis. Acute kidney injury. Shock liver. Hyperkalemia. Plan: Plan dated 04/30/2020. Currently, the patient remains on mechanical ventilation. Because of poor oxygenation, the PEEP was increased from 5 cm water, up to 15 cm water. The sodium bicarbonate drip. At noon today. We continue to monitor her renal function. Nephrology is on board. She was switched to the VC plus mode yesterday because she was dyssynchronous with the ventilator. She remains on saline at 200 mL an hour, and she is getting nourishment vital high protein, which will be increased to goal today. The plan from a respiratory standpoint is to reduce the FiO2 down to 50%. She is obviously not ready for weaning and extubation. Prognosis is guarded. She is quite ill. Additional recommendations and suggestions are forthcoming. We will continue to follow make recommendations were appropriate. Appreciate input from all consultants. Time with Patient: Greater than 30
--- NOTE | 2020-04-30 10:14 | P.PN ---
Subjective Patient is seen in follow-up for acute kidney injury and rhabdomyolysis. Patient's CK level has been trending up despite aggressive IV hydration. Potassium level is now normal. Urine output 25-30 mL an hour. Intubated. Currently on 60% FiO2. Blood pressure stable. Vital signs are stable. General: Intubated. HEENT: Head exam is unremarkable. Neck is without jugular venous distension. LUNGS: Breath sounds decreased. HEART: Tachycardic. ABDOMEN: Soft, obese. EXTREMITITES: 1+ edema. Objective - Vital Signs Vital signs: Vital Signs Temp 98.4 F 04/30/20 08:00 Pulse 111 H 04/30/20 09:00 Resp 24 04/30/20 09:00 BP 160/117 04/30/20 05:00 Pulse Ox 94 L 04/30/20 09:00 Intake & Output 04/29/20 04/30/20 04/30/20 18:59 06:59 18:59 Intake Total 4595.546 4000.971 1103.515 Output Total 500 355 110 Balance 4095.546 3645.971 993.515 Weight 123.8 kg 128.5 kg Intake: IV 2400 2400 600 Sodium Chloride 0.9% 1, 2400 2400 600 000 ml @ 200 mls/hr IV . Q5H [facility] Rx#:[id number] Intake, IV Titration 2175.546 1360.971 413.515 Amount ACETAMINOPHEN IV (For NPO 100 ) 1,000 mg In Empty Bag 1 bag @ 400 mls/hr IVPB ONCE ONE Rx#:[id number] Acetylcysteine IV 18,600 200 mg In Dextrose 5% in Water 200 ml @ 293 mls/hr IV ONCE ONE Rx#: [id number] Calcium Gluconate 1 gm In 100 Sodium Chloride 0.9% 100 ml @ 100 mls/hr IVPB ONCE ONE Rx#:[id number] Calcium Gluconate 2 gm In 100 100 Sodium Chloride 0.9% 100 ml @ 100 mls/hr IVPB ONCE ONE Rx#:[id number] Dextrose 5% in Water 1, 675 900 225 000 ml @ 75 mls/hr IV . [id number] SPIKE with Sodium Bicarb (1 Meq/ml) 150 ml Rx#:[id number] Dextrose 5% in Water 500 103.34 ml @ 51.667 mls/hr IV . Q12H [facility] with Acetylcysteine IV 24,000 mg Rx#:[id number] Piperacillin-Tazobactam 3 200 100 .375 gm In Sodium Chloride 0.9% 100 ml @ 25 mls/hr IVPB Q8HR [facility] Rx# :[id number] Vancomycin 2,000 mg In 501 Sodium Chloride 0.9% 500 ml 500 ml @ 167 mls/hr IVPB Q24H [facility] Rx#: [id number] propofoL 1,000 mg In 299.546 260.971 85.175 Empty Bag 1 bag @ Titrate IV .Q0M [facility] Rx#: [id number] Tube Feeding 20 150 60 Other 90 30 Output: Urine 500 355 110 Other: Voiding Method Indwelling Catheter Indwelling Catheter ABP, PAP, CO, CI - Last Documented Arterial Blood Pressure 155/92 - Labs CBC & Chem 7: 04/30/20 04:05 04/30/20 04:05 Labs: Abnormal Lab Results - Last 24 Hours (Table) 04/29/20 04/29/20 04/29/20 Range/Units 11:08 11:08 13:59 WBC (3.8-10.6) k/uL Plt Count (150-450) k/uL Neutrophils # (1.3-7.7) k/uL ABG pH (7.35-7.45) ABG pO2 (83-108) mmHg ABG O2 Saturation (94-97) % Sodium 136 L (137-145) mmol/L Potassium (3.5-5.1) mmol/L Chloride 113 H (98-107) mmol/L Carbon Dioxide 18 L (22-30) mmol/L BUN 28 H (7-17) mg/dL Creatinine 1.82 H (0.52-1.04) mg/dL Glucose 116 H (74-99) mg/dL POC Glucose (mg/dL) 114 H (75-99) mg/dL Calcium 4.9 L* (8.4-10.2) mg/dL Phosphorus (2.5-4.5) mg/dL AST (14-36) U/L ALT (4-34) U/L Alkaline Phosphatase (38-126) U/L Creatine Kinase (30-135) U/L CK-MB (CK-2) (0.0-2.4) ng/mL Total Protein (6.3-8.2) g/dL Albumin (3.5-5.0) g/dL Procalcitonin 33.68 H (0.02-0.09) ng/mL 04/29/20 04/29/20 04/29/20 Range/Units 16:55 16:55 17:17 WBC (3.8-10.6) k/uL Plt Count (150-450) k/uL Neutrophils # (1.3-7.7) k/uL ABG pH 7.29 L (7.35-7.45) ABG pO2 73 L (83-108) mmHg ABG O2 Saturation 92.7 L (94-97) % Sodium (137-145) mmol/L Potassium 3.0 L (3.5-5.1) mmol/L Chloride 123 H (98-107) mmol/L Carbon Dioxide 13 L (22-30) mmol/L BUN 21 H (7-17) mg/dL Creatinine (0.52-1.04) mg/dL Glucose (74-99) mg/dL POC Glucose (mg/dL) (75-99) mg/dL Calcium 2.9 L* (8.4-10.2) mg/dL Phosphorus (2.5-4.5) mg/dL AST 1030 H (14-36) U/L ALT 396 H (4-34) U/L Alkaline Phosphatase <20 L (38-126) U/L Creatine Kinase 92507 H* (30-135) U/L CK-MB (CK-2) 180.0 H (0.0-2.4) ng/mL Total Protein 2.0 L (6.3-8.2) g/dL Albumin <1.0 L (3.5-5.0) g/dL Procalcitonin (0.02-0.09) ng/mL 04/29/20 04/29/20 04/29/20 Range/Units 18:00 18:03 23:48 WBC (3.8-10.6) k/uL Plt Count (150-450) k/uL Neutrophils # (1.3-7.7) k/uL ABG pH (7.35-7.45) ABG pO2 (83-108) mmHg ABG O2 Saturation (94-97) % Sodium 134 L (137-145) mmol/L Potassium 5.6 H (3.5-5.1) mmol/L Chloride (98-107) mmol/L Carbon Dioxide 19 L (22-30) mmol/L BUN 37 H (7-17) mg/dL Creatinine 2.06 H (0.52-1.04) mg/dL Glucose 129 H (74-99) mg/dL POC Glucose (mg/dL) 192 H 141 H (75-99) mg/dL Calcium 5.6 L* (8.4-10.2) mg/dL Phosphorus (2.5-4.5) mg/dL AST 2012 H (14-36) U/L ALT 819 H (4-34) U/L Alkaline Phosphatase <20 L (38-126) U/L Creatine Kinase 406214 H* (30-135) U/L CK-MB (CK-2) (0.0-2.4) ng/mL Total Protein 3.9 L (6.3-8.2) g/dL Albumin 1.8 L (3.5-5.0) g/dL Procalcitonin (0.02-0.09) ng/mL 04/30/20 04/30/20 04/30/20 Range/Units 04:05 04:05 05:22 WBC 15.7 H (3.8-10.6) k/uL Plt Count 119 L (150-450) k/uL Neutrophils # 13.4 H (1.3-7.7) k/uL ABG pH 7.30 L (7.35-7.45) ABG pO2 128 H (83-108) mmHg ABG O2 Saturation 98.8 H (94-97) % Sodium 135 L (137-145) mmol/L Potassium (3.5-5.1) mmol/L Chloride (98-107) mmol/L Carbon Dioxide 20 L (22-30) mmol/L BUN 43 H (7-17) mg/dL Creatinine 2.52 H (0.52-1.04) mg/dL Glucose 132 H (74-99) mg/dL POC Glucose (mg/dL) (75-99) mg/dL Calcium 5.8 L* (8.4-10.2) mg/dL Phosphorus 6.4 H (2.5-4.5) mg/dL AST 2103 H (14-36) U/L ALT 888 H (4-34) U/L Alkaline Phosphatase (38-126) U/L Creatine Kinase 231702 H* (30-135) U/L CK-MB (CK-2) (0.0-2.4) ng/mL Total Protein 3.9 L (6.3-8.2) g/dL Albumin 1.9 L (3.5-5.0) g/dL Procalcitonin (0.02-0.09) ng/mL 04/30/20 Range/Units 05:34 WBC (3.8-10.6) k/uL Plt Count (150-450) k/uL Neutrophils # (1.3-7.7) k/uL ABG pH (7.35-7.45) ABG pO2 (83-108) mmHg ABG O2 Saturation (94-97) % Sodium (137-145) mmol/L Potassium (3.5-5.1) mmol/L Chloride (98-107) mmol/L Carbon Dioxide (22-30) mmol/L BUN (7-17) mg/dL Creatinine (0.52-1.04) mg/dL Glucose (74-99) mg/dL POC Glucose (mg/dL) 159 H (75-99) mg/dL Calcium (8.4-10.2) mg/dL Phosphorus (2.5-4.5) mg/dL AST (14-36) U/L ALT (4-34) U/L Alkaline Phosphatase (38-126) U/L Creatine Kinase (30-135) U/L CK-MB (CK-2) (0.0-2.4) ng/mL Total Protein (6.3-8.2) g/dL Albumin (3.5-5.0) g/dL Procalcitonin (0.02-0.09) ng/mL Assessment and Plan Plan: Assessment: 1. Acute kidney injury secondary to ATN secondary to rhabdomyolysis. Renal function worse today. Creatinine 2.52. Unknown baseline renal function. 2. Rhabdomyolysis. CK levels trending up - 115,294 this morning. 3. Hyperkalemia secondary to acute kidney injury, rhabdomyolysis and metabolic acidosis. Improved. 4. Hypocalcemia secondary to acute kidney injury and rhabdomyolysis. 5. Metabolic acidosis secondary to acute kidney injury and IV fluids. 6. Polysubstance drug overdose. 7. Hyperphosphatemia secondary to acute kidney injury. Expect improvement postdialysis. Plan: Maintain IV fluids. Bicarb drip will be discontinued at noon. Calcium will be replaced. Avoid nephrotoxins. Initiate renal replacement therapy due to worsening renal function and low urine output despite aggressive IV hydration. Consult vascular surgery for dialysis catheter placement.
--- NOTE | 2020-04-30 10:39 | CDI ---
Documentation Clarification Form Date: 04/30/2020 09:50:21 AM From: Alejandra Villegas RN, CCDS Admit Date: 04/29/2020 01:48:00 AM Patient Name: Shanta Soto Visit Number: [id number] Discharge Date: ATTENTION: The Clinical Documentation Specialists (CDI) and [facility] Coding Staff appreciate your assistance in clarifying documentation. Please respond to the clarification below the line at the bottom and electronically sign. The CDI & [facility] Coding staff will review the response and follow-up if needed. Please note: Queries are made part of the Legal Health Record. If you have any questions, please contact the author of this message via ITS. Dr. Hayley Singh Please render your impression on acute rhabdomyolysis. History/Risk Factors: Polysubstance abuse Clinical Indicators: 39-year-old female present to ED on 04/28 per EMS, found unresponsive. She was found laying on the floor. Skin exam: dry, intact, mottled, (skin is cool).She had multiple scratches on her left facial, and multiple bruises and scratches in the perineal area. A small blood blister was also seen in the area of the mons pubis. 04/28 Vital signs: 109/55 66 12 98.3 92 % RA 04/29Labs: WBC 22.3 BUN 37, CR 2.03, Lactic acid 9.6 Creatine Kinase 91595, 78874, CK-MB 173, AST 963, 2296, ALT 293, 604, UDS: Positive She had altered mental status and was intubated in ED . Treatment: ICU Monitoring Mechanical vent management per pulmonary Monitor Labs: Electrolytes, BUN, CR, CK, CK-MB Sodium bicarbonate 3 amps IV D5W at 75 mls/hr Calcium Gluconate 2 gm ivpb x3 per orders Monitor renal function and urine output closely In your professional opinion, can you please clarify the etiology of the condition? Traumatic rhabdomyolysis due to prolonged immobility Non traumatic rhabdomyolysis due to medication (please specify) Non traumatic rhabdomyolysis due to infection (please specify) Other, please specify Unable to determine (Last Revision: February 2019) rhabdo due to prolonged immobility secondary to overdose MTDD
[2020-04-30] MEDS ORDERED: CALCIUM GLUCONATE 2 GM in SODIUM CHLORIDE 0.9% 100 ML IVPB ONE (11:00)
[2020-04-30] MEDS: MUPIROCIN 2% OINT 22 GM TUBE TOPICAL SCH ×3 (11:33→21:50)
[2020-04-30 11:37] LABS: Glucose,Whole Blood 146 mg/dL (75-99)
[2020-04-30 11:57] LABS: Hepatitis A Antibody IgM Non-Reactive (Non-Reactive); Hepatitis B Core IgM Non-Reactive (Non-Reactive); Hepatitis B Surface Antigen Non-Reactive (Non-Reactive); Hepatitis C IgG Antibody Reactive (Non-Reactive)
--- NOTE | 2020-04-30 12:02 | P.PN ---
Subjective Progress Note Date: 04/30/20 The patient was seen at bedside and she continues to be intubated on ventilator and on the IV propofol drip 50mcg/kg/min. Her pupils continue to be unequal (right > left) Patient's white blood cell is trending down today is 15.7. Her creatinine is worsening and the today it's a 2.5 to yesterday was 2.06 BUN is 43 and yesterday's a BUN is 37. The calcium is 5.8. The AST it's 2103 and the ALT is 888 close about yesterday. TSH is 0.708 which is considered normal. I spoke with the patient's mother (Nurys) via phone and that she stated that the patient has drug issues since the age of 14. She's been in rehab multiple times in the past but continues to relapse. Objective - Vital Signs Vital signs: Vital Signs Temp 98.4 F 04/30/20 08:00 Pulse 101 H 04/30/20 10:00 Resp 28 H 04/30/20 10:00 BP 160/117 04/30/20 05:00 Pulse Ox 96 04/30/20 10:00 Intake & Output 04/29/20 04/30/20 04/30/20 18:59 06:59 18:59 Intake Total 4595.546 4000.971 1450.185 Output Total 500 355 135 Balance 4095.546 3645.971 1315.185 Weight 123.8 kg 128.5 kg Intake: IV 2400 2400 800 Sodium Chloride 0.9% 1, 2400 2400 800 000 ml @ 200 mls/hr IV . Q5H [facility] Rx#:[id number] Intake, IV Titration 2175.546 1360.971 540.185 Amount ACETAMINOPHEN IV (For NPO 100 ) 1,000 mg In Empty Bag 1 bag @ 400 mls/hr IVPB ONCE ONE Rx#:[id number] Acetylcysteine IV 18,600 200 mg In Dextrose 5% in Water 200 ml @ 293 mls/hr IV ONCE ONE Rx#: [id number] Calcium Gluconate 1 gm In 100 Sodium Chloride 0.9% 100 ml @ 100 mls/hr IVPB ONCE ONE Rx#:[id number] Calcium Gluconate 2 gm In 100 100 Sodium Chloride 0.9% 100 ml @ 100 mls/hr IVPB ONCE ONE Rx#:[id number] Dextrose 5% in Water 1, 675 900 300 000 ml @ 75 mls/hr IV . [id number] with Sodium Bicarb (1 Meq/ml) 150 ml Rx#:[id number] Dextrose 5% in Water 500 155.01 ml @ 51.667 mls/hr IV . Q12H SPIKE with Acetylcysteine IV 24,000 mg Rx#:[id number] Piperacillin-Tazobactam 3 200 100 .375 gm In Sodium Chloride 0.9% 100 ml @ 25 mls/hr IVPB Q8HR [facility] Rx# :[id number] Vancomycin 2,000 mg In 501 Sodium Chloride 0.9% 500 ml 500 ml @ 167 mls/hr IVPB Q24H [facility] Rx#: [id number] propofoL 1,000 mg In 299.546 260.971 85.175 Empty Bag 1 bag @ Titrate IV .Q0M [facility] Rx#: [id number] Tube Feeding 20 150 80 Other 90 30 Output: Urine 500 355 135 Other: Voiding Method Indwelling Catheter Indwelling Catheter ABP, PAP, CO, CI - Last Documented Arterial Blood Pressure 126/82 - Exam GENERAL: The patient is lying in bed and is not in acute distress. She is on IV propopfol 50mcg/kg/min and was held for about 45 minutes prior to exam. HENT: No nuchal rdigity. Supple neck. LUNG: Clear to auscultation bilaterally no wheezing noted throughout. Not labored breathing. NEUROLOGICAL: Limited since patient is intubated on ventilator and on IV propofol 50mcg/kg/min---held 45 minutes prior to exam. Higher mental function: GCS8 (E3,VT1,M4). Drowsy but opens eyes to verbal stimuli. Not following commands or attempting to talk. Cranial Nerves: Primary gaze are midline. Right pupil is 5-6mm and let is 3-4mm but bilaterally are reactive to light. No facial weakness. Motor: Unable to assess but has some spontaneous movement of the bilateral feet Cerebellum: Unable to assess. Sensation: Unable to assess grimaces to painful stimuli. Reflexes (right/left): 2+ throughout. Plantars are downgoing bilaterally. - Labs CBC & Chem 7: 04/30/20 04:05 04/30/20 04:05 Labs: Abnormal Lab Results - Last 24 Hours (Table) 04/29/20 04/29/20 04/29/20 Range/Units 11:08 11:08 13:59 WBC (3.8-10.6) k/uL Plt Count (150-450) k/uL Neutrophils # (1.3-7.7) k/uL ABG pH (7.35-7.45) ABG pO2 (83-108) mmHg ABG O2 Saturation (94-97) % Sodium 136 L (137-145) mmol/L Potassium (3.5-5.1) mmol/L Chloride 113 H (98-107) mmol/L Carbon Dioxide 18 L (22-30) mmol/L BUN 28 H (7-17) mg/dL Creatinine 1.82 H (0.52-1.04) mg/dL Glucose 116 H (74-99) mg/dL POC Glucose (mg/dL) 114 H (75-99) mg/dL Calcium 4.9 L* (8.4-10.2) mg/dL Phosphorus (2.5-4.5) mg/dL AST (14-36) U/L ALT (4-34) U/L Alkaline Phosphatase (38-126) U/L Creatine Kinase (30-135) U/L CK-MB (CK-2) (0.0-2.4) ng/mL Total Protein (6.3-8.2) g/dL Albumin (3.5-5.0) g/dL Procalcitonin 33.68 H (0.02-0.09) ng/mL 04/29/20 04/29/20 04/29/20 Range/Units 16:55 16:55 17:17 WBC (3.8-10.6) k/uL Plt Count (150-450) k/uL Neutrophils # (1.3-7.7) k/uL ABG pH 7.29 L (7.35-7.45) ABG pO2 73 L (83-108) mmHg ABG O2 Saturation 92.7 L (94-97) % Sodium (137-145) mmol/L Potassium 3.0 L (3.5-5.1) mmol/L Chloride 123 H (98-107) mmol/L Carbon Dioxide 13 L (22-30) mmol/L BUN 21 H (7-17) mg/dL Creatinine (0.52-1.04) mg/dL Glucose (74-99) mg/dL POC Glucose (mg/dL) (75-99) mg/dL Calcium 2.9 L* (8.4-10.2) mg/dL Phosphorus (2.5-4.5) mg/dL AST 1030 H (14-36) U/L ALT 396 H (4-34) U/L Alkaline Phosphatase <20 L (38-126) U/L Creatine Kinase 98258 H* (30-135) U/L CK-MB (CK-2) 180.0 H (0.0-2.4) ng/mL Total Protein 2.0 L (6.3-8.2) g/dL Albumin <1.0 L (3.5-5.0) g/dL Procalcitonin (0.02-0.09) ng/mL 04/29/20 04/29/20 04/29/20 Range/Units 18:00 18:03 23:48 WBC (3.8-10.6) k/uL Plt Count (150-450) k/uL Neutrophils # (1.3-7.7) k/uL ABG pH (7.35-7.45) ABG pO2 (83-108) mmHg ABG O2 Saturation (94-97) % Sodium 134 L (137-145) mmol/L Potassium 5.6 H (3.5-5.1) mmol/L Chloride (98-107) mmol/L Carbon Dioxide 19 L (22-30) mmol/L BUN 37 H (7-17) mg/dL Creatinine 2.06 H (0.52-1.04) mg/dL Glucose 129 H (74-99) mg/dL POC Glucose (mg/dL) 192 H 141 H (75-99) mg/dL Calcium 5.6 L* (8.4-10.2) mg/dL Phosphorus (2.5-4.5) mg/dL AST 2012 H (14-36) U/L ALT 819 H (4-34) U/L Alkaline Phosphatase <20 L (38-126) U/L Creatine Kinase 326209 H* (30-135) U/L CK-MB (CK-2) (0.0-2.4) ng/mL Total Protein 3.9 L (6.3-8.2) g/dL Albumin 1.8 L (3.5-5.0) g/dL Procalcitonin (0.02-0.09) ng/mL 04/30/20 04/30/20 04/30/20 Range/Units 04:05 04:05 05:22 WBC 15.7 H (3.8-10.6) k/uL Plt Count 119 L (150-450) k/uL Neutrophils # 13.4 H (1.3-7.7) k/uL ABG pH 7.30 L (7.35-7.45) ABG pO2 128 H (83-108) mmHg ABG O2 Saturation 98.8 H (94-97) % Sodium 135 L (137-145) mmol/L Potassium (3.5-5.1) mmol/L Chloride (98-107) mmol/L Carbon Dioxide 20 L (22-30) mmol/L BUN 43 H (7-17) mg/dL Creatinine 2.52 H (0.52-1.04) mg/dL Glucose 132 H (74-99) mg/dL POC Glucose (mg/dL) (75-99) mg/dL Calcium 5.8 L* (8.4-10.2) mg/dL Phosphorus 6.4 H (2.5-4.5) mg/dL AST 2103 H (14-36) U/L ALT 888 H (4-34) U/L Alkaline Phosphatase (38-126) U/L Creatine Kinase [id number] H* (30-135) U/L CK-MB (CK-2) (0.0-2.4) ng/mL Total Protein 3.9 L (6.3-8.2) g/dL Albumin 1.9 L (3.5-5.0) g/dL Procalcitonin (0.02-0.09) ng/mL 04/30/20 Range/Units 05:34 WBC (3.8-10.6) k/uL Plt Count (150-450) k/uL Neutrophils # (1.3-7.7) k/uL ABG pH (7.35-7.45) ABG pO2 (83-108) mmHg ABG O2 Saturation (94-97) % Sodium (137-145) mmol/L Potassium (3.5-5.1) mmol/L Chloride (98-107) mmol/L Carbon Dioxide (22-30) mmol/L BUN (7-17) mg/dL Creatinine (0.52-1.04) mg/dL Glucose (74-99) mg/dL POC Glucose (mg/dL) 159 H (75-99) mg/dL Calcium (8.4-10.2) mg/dL Phosphorus (2.5-4.5) mg/dL AST (14-36) U/L ALT (4-34) U/L Alkaline Phosphatase (38-126) U/L Creatine Kinase (30-135) U/L CK-MB (CK-2) (0.0-2.4) ng/mL Total Protein (6.3-8.2) g/dL Albumin (3.5-5.0) g/dL Procalcitonin (0.02-0.09) ng/mL Assessment and Plan Assessment: Altered mental status due to toxic metabolic encephalopathy (durg oversode with UDS positive for coaine, marijuana, methadone and benzodizepine) and multiple electrolyte imbalance LFTS, hypocalcemia, REGLA. Also component of likely aspiration pneumonia Anisocoria (right pupil is 5-6mm and left 3-4mm). Unknown exact cause. Cocaine can cause vasocontristion. Unlikely aneurysm since pupils are reactive. Acute kidney insufficiency-trending up Rhabdomyolysis Elecytrolyte imbalance (hypocalecmia, slight hyponatremia, hyperphosphatemia, hyperkalemia--resolved) Acute liver failure (AST > ALT)--stablized in the last one day Aspiration pneumonia Acute hypoxic respiratory failure requiring intubation and mechanical v entilation Plan: Ordered routine EEG. I will not start the patient on antiepileptic drug unless there is applicable from discharge or seizure on the EEG. Ordered CTA of the head and neck today to rule out aneurysm or vasocontriction. I spoke with the patient's mother and that she is in agreement proceeding with CTA of the head and neck and notified her that it can cause kidney worsening. I spoke with the supervisor/port director (Dr. Carcamo) and the he stated that the patient w ill get dialysis today and so we'll try to coordinate getting the CTA at first didn't get dialysis afterwards. Will consider MRI of the brain if the patient becomes more stable and off ventilator and continues to have neurological deficits. Continue thiamine 100 mg IV daily. TSH level: Normal. Nephrology is on board. Recommend psychiatry consultation once the patient is more awake. We'll defer the rest of the medical management to the primary team as well as ICU team. The plan is discussed with the patient's mother (Nurys) via phone, primary attending and nurse. Jerome Quiroga M.D. Neuro-hospitalist Time with Patient: Less than 30
--- NOTE | 2020-04-30 13:56 | P.PN ---
Subjective Progress Note Date: 04/30/20 Principal diagnosis: unresponsive episode Patient is a 39 yo CF with a hx of IV drug use, obeseity, and prior left leg surgery who was brought in by ems after being found unresponsive by a friend laying on the floor. On admission there is concern with overdose and drug screen is positive for methadone, TCAs, benzos, cocaine, and marijuana. Serum alcohol and salicylate levels were negative. CT head no acute process. CT abd and pelvis In the ER a central line was placed. She was given a dose of Narcan and had increased responsiveness and was started on BiPap. She was found to have sepsis, rhabdo, REGLA, hyperkalemia, lactic acidosis, and altered mentation due to overdose. She required intubation early in the day on 04/29 secondary to worsening respiratory status. Pulmonology was consulted. She was started on Zosyn for possible left-sided aspiration pneumonia. She was started on a sodium bicarb drip as her CPKs were increasing. She developed increasing potassium levels that did improve with IV fluids and initiation of sodium bicarb. Nephrology was consulted and recommended continuing with IV fluids, they also recommended contacting poison control.. She was noted to have anascoria and neurology was consulted. [place] likely to be due to vasoconstriction due to cocaine use. Her renal function continued to worsen on 04/30 and the decision was made to initiate hemodialysis. Patient was noted to have a troponin of 4. Cardiology was contacted. They recommended initiating metoprolol secondary to tachycardia. Echo with EF 55-60%. Patient seen and examined at bedside. She remained sedated and on mechanical ventilation. Per nursing notes acute events overnight. Patient is being set up for EEG. General: mild distress, ill appearing, appears at stated age Derm: warm, dry Head: atraumatic, normocephalic, symmetric Eyes: No lip lesion, anicteric sclera Mouth: no lip lesion, mucus membranes dry Cardiovascular: S1S2 reg, no murmur, positive posterior tibial pulse bilateral, Lungs: Coarse breath sounds bilaterally, no rhonchi, on vent Abdominal: soft, nontender to palpation, no guarding, no appreciable organomegaly Ext: no gross muscle atrophy, diffuse anasarca, no contractures Neuro: R people for, left pupil 3, both equally reactive to light. No tremors noted, no muscle rigidity Psych: sedated, no withdrawal to pain Toxic metabolic encephalopathy secondary to probable polysubstance overdose -Positive for benzodiazepines, tricyclics, methadone, cocaine, and marijuana on admission drug screen - supportive care Acute hypoxic respiratory failure, suspect aspiration pneumonia -Intubated on 04/29/20 -Pulmonary recommendations -Zosyn -Sputum culture pending - blood cultures Acute renal failure secondary to rhabdo -Nephrology recommendations: Case discussed with nephrology will initiate dialysis today -Avoid nephrotoxic agents -Follow renal profile -Avoid hypotension. Anasacoria - neurorecommendations: Recommends CTA of the head and neck Thrombocytopenia - likely reactive - follow CBC Hypocalcemia -Likely will correct with dialysis -Continue to monitor Shock liver -May also be due to rhabdo -Continue with Mucomyst -Await hepatitis profile -Follow liver function -Avoid hepatotoxic agents Multiple excoriations over medial proximal thigh -Apply mupirocin ointment -Monitor for signs and symptoms of developing infection Elevated troponin - Cardiology recommendations appreciated. [place] to be noncardiac. Obesity with BMI 44.4 -Structured outpatient weight loss Lactic acidosis, resolved Metabolic acidosis, resolved Hyperkalemia, resolved DVT prophylaxis: Heparin Discussed with: Patient and nursing Anticipated discharge: pending clinic course Anticipated discharge place: pending clinica course A total of 45 minutes was spent on the care of this complex patient more than 50% of the time was spent in counseling and care coordination. Objective - Vital Signs Vital signs: Vital Signs Temp 98.4 F 04/30/20 08:00 Pulse 101 H 04/30/20 10:00 Resp 28 H 04/30/20 10:00 BP 160/117 04/30/20 05:00 Pulse Ox 96 04/30/20 10:00 Intake & Output 04/29/20 04/30/20 04/30/20 18:59 06:59 18:59 Intake Total 4595.546 4000.971 1527.928 Output Total 500 355 135 Balance 4095.546 3645.971 1392.928 Weight 123.8 kg 128.5 kg Intake: IV 2400 2400 800 Sodium Chloride 0.9% 1, 2400 2400 800 000 ml @ 200 mls/hr IV . Q5H [facility] Rx#:[id number] Intake, IV Titration 2175.546 1360.971 617.928 Amount ACETAMINOPHEN IV (For NPO 100 ) 1,000 mg In Empty Bag 1 bag @ 400 mls/hr IVPB ONCE ONE Rx#:[id number] Acetylcysteine IV 18,600 200 mg In Dextrose 5% in Water 200 ml @ 293 mls/hr IV ONCE ONE Rx#: [id number] Calcium Gluconate 1 gm In 100 Sodium Chloride 0.9% 100 ml @ 100 mls/hr IVPB ONCE ONE Rx#:[id number] Calcium Gluconate 2 gm In 100 100 Sodium Chloride 0.9% 100 ml @ 100 mls/hr IVPB ONCE ONE Rx#:[id number] Dextrose 5% in Water 1, 675 900 300 000 ml @ 75 mls/hr IV . [id number] SPIKE with Sodium Bicarb (1 Meq/ml) 150 ml Rx#:[id number] Dextrose 5% in Water 500 155.01 ml @ 51.667 mls/hr IV . Q12H SPIKE with Acetylcysteine IV 24,000 mg Rx#:[id number] Piperacillin-Tazobactam 3 200 100 .375 gm In Sodium Chloride 0.9% 100 ml @ 25 mls/hr IVPB Q8HR [facility] Rx# :[id number] Vancomycin 2,000 mg In 501 Sodium Chloride 0.9% 500 ml 500 ml @ 167 mls/hr IVPB Q24H [facility] Rx#: [id number] propofoL 1,000 mg In 299.546 260.971 162.918 Empty Bag 1 bag @ Titrate IV .Q0M [facility] Rx#: [id number] Tube Feeding 20 150 80 Other 90 30 Output: Urine 500 355 135 Other: Voiding Method Indwelling Catheter Indwelling Catheter Indwelling Catheter ABP, PAP, CO, CI - Last Documented Arterial Blood Pressure 126/82 - Labs CBC & Chem 7: 04/30/20 04:05 04/30/20 04:05 Labs: Abnormal Lab Results - Last 24 Hours (Table) 04/29/20 04/29/20 04/29/20 Range/Units 11:08 11:08 13:59 WBC (3.8-10.6) k/uL Plt Count (150-450) k/uL Neutrophils # (1.3-7.7) k/uL ABG pH (7.35-7.45) ABG pO2 (83-108) mmHg ABG O2 Saturation (94-97) % Sodium 136 L (137-145) mmol/L Potassium (3.5-5.1) mmol/L Chloride 113 H (98-107) mmol/L Carbon Dioxide 18 L (22-30) mmol/L BUN 28 H (7-17) mg/dL Creatinine 1.82 H (0.52-1.04) mg/dL Glucose 116 H (74-99) mg/dL POC Glucose (mg/dL) 114 H (75-99) mg/dL Calcium 4.9 L* (8.4-10.2) mg/dL Phosphorus (2.5-4.5) mg/dL AST (14-36) U/L ALT (4-34) U/L Alkaline Phosphatase (38-126) U/L Creatine Kinase (30-135) U/L CK-MB (CK-2) (0.0-2.4) ng/mL Total Protein (6.3-8.2) g/dL Albumin (3.5-5.0) g/dL Procalcitonin 33.68 H (0.02-0.09) ng/mL 04/29/20 04/29/20 04/29/20 Range/Units 16:55 16:55 17:17 WBC (3.8-10.6) k/uL Plt Count (150-450) k/uL Neutrophils # (1.3-7.7) k/uL ABG pH 7.29 L (7.35-7.45) ABG pO2 73 L (83-108) mmHg ABG O2 Saturation 92.7 L (94-97) % Sodium (137-145) mmol/L Potassium 3.0 L (3.5-5.1) mmol/L Chloride 123 H (98-107) mmol/L Carbon Dioxide 13 L (22-30) mmol/L BUN 21 H (7-17) mg/dL Creatinine (0.52-1.04) mg/dL Glucose (74-99) mg/dL POC Glucose (mg/dL) (75-99) mg/dL Calcium 2.9 L* (8.4-10.2) mg/dL Phosphorus (2.5-4.5) mg/dL AST 1030 H (14-36) U/L ALT 396 H (4-34) U/L Alkaline Phosphatase <20 L (38-126) U/L Creatine Kinase 33461 H* (30-135) U/L CK-MB (CK-2) 180.0 H (0.0-2.4) ng/mL Total Protein 2.0 L (6.3-8.2) g/dL Albumin <1.0 L (3.5-5.0) g/dL Procalcitonin (0.02-0.09) ng/mL 04/29/20 04/29/20 04/29/20 Range/Units 18:00 18:03 23:48 WBC (3.8-10.6) k/uL Plt Count (150-450) k/uL Neutrophils # (1.3-7.7) k/uL ABG pH (7.35-7.45) ABG pO2 (83-108) mmHg ABG O2 Saturation (94-97) % Sodium 134 L (137-145) mmol/L Potassium 5.6 H (3.5-5.1) mmol/L Chloride (98-107) mmol/L Carbon Dioxide 19 L (22-30) mmol/L BUN 37 H (7-17) mg/dL Creatinine 2.06 H (0.52-1.04) mg/dL Glucose 129 H (74-99) mg/dL POC Glucose (mg/dL) 192 H 141 H (75-99) mg/dL Calcium 5.6 L* (8.4-10.2) mg/dL Phosphorus (2.5-4.5) mg/dL AST 2012 H (14-36) U/L ALT 819 H (4-34) U/L Alkaline Phosphatase <20 L (38-126) U/L Creatine Kinase 242309 H* (30-135) U/L CK-MB (CK-2) (0.0-2.4) ng/mL Total Protein 3.9 L (6.3-8.2) g/dL Albumin 1.8 L (3.5-5.0) g/dL Procalcitonin (0.02-0.09) ng/mL 04/30/20 04/30/20 04/30/20 Range/Units 04:05 04:05 05:22 WBC 15.7 H (3.8-10.6) k/uL Plt Count 119 L (150-450) k/uL Neutrophils # 13.4 H (1.3-7.7) k/uL ABG pH 7.30 L (7.35-7.45) ABG pO2 128 H (83-108) mmHg ABG O2 Saturation 98.8 H (94-97) % Sodium 135 L (137-145) mmol/L Potassium (3.5-5.1) mmol/L Chloride (98-107) mmol/L Carbon Dioxide 20 L (22-30) mmol/L BUN 43 H (7-17) mg/dL Creatinine 2.52 H (0.52-1.04) mg/dL Glucose 132 H (74-99) mg/dL POC Glucose (mg/dL) (75-99) mg/dL Calcium 5.8 L* (8.4-10.2) mg/dL Phosphorus 6.4 H (2.5-4.5) mg/dL AST 2103 H (14-36) U/L ALT 888 H (4-34) U/L Alkaline Phosphatase (38-126) U/L Creatine Kinase [id number] H* (30-135) U/L CK-MB (CK-2) (0.0-2.4) ng/mL Total Protein 3.9 L (6.3-8.2) g/dL Albumin 1.9 L (3.5-5.0) g/dL Procalcitonin (0.02-0.09) ng/mL 04/30/20 Range/Units 05:34 WBC (3.8-10.6) k/uL Plt Count (150-450) k/uL Neutrophils # (1.3-7.7) k/uL ABG pH (7.35-7.45) ABG pO2 (83-108) mmHg ABG O2 Saturation (94-97) % Sodium (137-145) mmol/L Potassium (3.5-5.1) mmol/L Chloride (98-107) mmol/L Carbon Dioxide (22-30) mmol/L BUN (7-17) mg/dL Creatinine (0.52-1.04) mg/dL Glucose (74-99) mg/dL POC Glucose (mg/dL) 159 H (75-99) mg/dL Calcium (8.4-10.2) mg/dL Phosphorus (2.5-4.5) mg/dL AST (14-36) U/L ALT (4-34) U/L Alkaline Phosphatase (38-126) U/L Creatine Kinase (30-135) U/L CK-MB (CK-2) (0.0-2.4) ng/mL Total Protein (6.3-8.2) g/dL Albumin (3.5-5.0) g/dL Procalcitonin (0.02-0.09) ng/mL
--- NOTE | 2020-04-30 14:39 | XR ---
EXAMINATION TYPE: XR chest 1V portable DATE OF EXAM: 04/30/2020 COMPARISON: 04/30/2020 HISTORY: Post line insertion TECHNIQUE: Single frontal view of the chest is obtained. FINDINGS: Right-sided central line seen the tip overlying the SVC. No sizable pneumothorax. Apical p leural thickening noted bilaterally. Perihilar patchy infiltrates with left lower lobe subsegmental c onsolidation stable. ET and NG tube stable. IMPRESSION: 1. Central line with tip overlying the SVC. No pneumothorax. 2. Patchy perihilar and left lower lobe infiltrate stable.
--- NOTE | 2020-04-30 14:52 | EEG ---
ELECTROENCEPHALOGRAM REPORT DATE OF SERVICE: 04/30/2020 CLINICAL HISTORY: This is a 39-year-old female with altered mental status. The video EEG is obtained to evaluate for seizure and epileptiform activity. RELEVANT MEDICATION: The patient is on IV propofol that was held at the start of the study. EEG TYPE: A routine 21 channel EEG is performed with video using the 10/20 electrode placement system. DESCRIPTION: The patient is intubated on ventilator and IV propofol was held at the start of the study. There was no posterior dominant rhythm seen. The background consists of continuous diffuse moderate voltage of 1.5-2.5 semi-arrhythmic to polymorphic activity. Interictal and ictal are none. ACTIVATION PROCEDURE: Photic stimulation did not evoke a posterior driving response. Hyperventilation is not performed. CLINICAL INTERPRETATION: This is an abnormal EEG. The background slowing is suggestive of severe encephalopathy of unspecified etiology. There are no focal slowing, epileptiform discharge or seizure on the EEG. Clinical correlation is recommended. ALYSIA / ROLANDA: [id number] / MTDD
[2020-04-30 16:05] LABS: Partial Thromboplastin Time 44.7 sec (22.0-30.0); Prothrombin Time 10.9 sec (9.0-12.0)
[2020-04-30 19:02] LABS: Glucose,Whole Blood 150 mg/dL (75-99)
--- NOTE | 2020-04-30 19:11 | CT ---
EXAMINATION TYPE: CT angio head neck DATE OF EXAM: 04/30/2020 COMPARISON: None HISTORY: anisocoria. R/o intracranial stenosis vs aneurysm CT DLP: 962.9 mGycm Automated exposure control for dose reduction was used. CONTRAST: Performed with IV Contrast, patient injected with 65 mL of Isovue 370. CT angiogram of the head and neck. History unequal pupils. Comparison none. TECHNIQUE: Images obtained from the aortic arch to the vertex of the brain with IV contrast and 3-D post process ed images. There is endotracheal tube. There is normal branching pattern of the great vessels on the aortic arch . There is bilateral arterial flow in the subclavian arteries. There is arterial flow in the common i nternal and external carotid arteries bilaterally. There is arterial flow in both vertebral arteries. There is arterial flow in the vertebrobasilar artery system. Basilar artery fills mostly from the le ft side. There is no evidence of carotid or vertebral artery aneurysm or dissection. There is arterial flow in the anterior middle and posterior cerebral arteries. There is no mass effec t. There is no evidence of intracranial aneurysm or neovascularity. There is normal enhancement of th e venous sinuses. There is no sign of intracranial arterial stenosis. There is evidence of cortical hypodensity right cerebellar hemisphere posteriorly. There are fluid levels in the ethmoid and sphenoid sinuses. There is small fluid level right maxillar y sinus. IMPRESSION: Negative CT angiogram of the neck. Negative CT angiogram of the brain. No evidence of hemodynamic lorena nosis. There is noted pulmonary posterior infiltrates on the limited evaluation of the lungs in the mid lung gardner. Sinusitis. Right cerebellar hemisphere cortical hypodensity suggestive of infarct and also present on CT brain y esterday.
--- NOTE | 2020-04-30 22:25 | XR ---
EXAMINATION TYPE: XR chest 1V portable DATE OF EXAM: 04/30/2020 COMPARISON: Today HISTORY: Hypoxemia TECHNIQUE: FINDINGS: Endotracheal tube is 5 cm from the savanna. There is nasogastric tube in the stomach. There is some pulmonary interstitial edema. There is right jugular catheter with tip in the superior vena c miryam. There are chest leads. IMPRESSION: There is some interstitial edema increased compared to exam this morning. 8 hours ago.
[2020-04-30 23:58] LABS: Glucose,Whole Blood 117 mg/dL (75-99)
[2020-05-01] MEDS: HEPARIN SODIUM,PORCINE 5,000 UNIT/ML 1 ML VIAL SQ SCH ×2 (00:03→07:54)
[2020-05-01] MEDS: PIPERACILLIN-TAZOBACTAM 3.375 GM in SODIUM CHLORIDE 0.9% 100 ML IVPB SCH ×2 (00:04→07:54)
[2020-05-01] MEDS: SODIUM CHLORIDE 0.9% 1,000 ML IV SCH ×2 (01:28→06:23)
[2020-05-01] MEDS: ACETYLCYSTEINE IV SCH (04:32)
[2020-05-01] MEDS: WATER IV SCH (04:32)
[2020-05-01] MEDS: DEXTROSE 5% IV SCH (04:32)
[2020-05-01 04:40] LABS: ABG Base Excess -7.5 mmol/L; ABG HCO3 19 mmol/L (21-25); ABG Oxygen Saturation 89.4 % (94-97); ABG PCO2 40 mmHg (35-45); ABG PH 7.29 (7.35-7.45); ABG PO2 65 mmHg (83-108); ABG TCO2 20 mmol/L (19-24)
[2020-05-01 05:01] LABS: Allen Test Performed? no
[2020-05-01 05:17] LABS: Basophils % (A) 0 %; Eosinophils # (A) 0.1 k/uL (0-0.7); Eosinophils % (A) 0 %; HCT 33.6 % (34.0-46.0); HGB 12.4 gm/dL (11.4-16.0); Lymphocytes # (A) 1.2 k/uL (1.0-4.8); Lymphocytes % (A) 9 %; MCH 34.3 pg (25.0-35.0); MCHC 36.9 g/dL (31.0-37.0); Mean Platelet Volume 8.6; Monocytes # (A) 0.3 k/uL (0-1.0); Monocytes % (A) 2 %; Neutrophils # (A) 12.6 k/uL (1.3-7.7); Neutrophils % (A) 89 %; Platelet Count 112 k/uL (150-450); RBC 3.61 m/uL (3.80-5.40); RDW 13.4 % (11.5-15.5); WBC 14.2 k/uL (3.8-10.6)
[2020-05-01 05:31] LABS: Albumin 1.7 g/dL (3.5-5.0); Phosphorus 6.3 mg/dL (2.5-4.5); Total Bilirubin 0.8 mg/dL (0.2-1.3); Total Protein 3.6 g/dL (6.3-8.2)
[2020-05-01 05:48] LABS: Glucose,Whole Blood 122 mg/dL (75-99)
[2020-05-01] MEDS: INSULIN ASPART (NovoLOG) 100 UNIT/ML VIAL SQ SCH (05:54)
[2020-05-01] MEDS ORDERED: CISATRACURIUM 2 MG/ML 5 ML VIAL IV ONE (06:10)
--- NOTE | 2020-05-01 06:11 | XR ---
EXAM: XR Chest, 1 View CLINICAL HISTORY: Reason: Tube placement TECHNIQUE: Frontal view of the chest. COMPARISON: 04/30/20 at 2209 hrs. FINDINGS: Lungs: Endotracheal tube is in place with the tip well positioned approximately 4.5 cm above the savanna. There has been significant interval worsening of lung aeration, with diffuse hazy appearance of both lungs suggestive of ARDS. Pleural space: No evidence of pneumothorax. Heart: Cardiac silhouette is partially obscured by lung opacification, though appears grossly unchanged. Mediastinum: There is no mediastinal shift. Right IJ central venous catheter in place with tip in distal SVC. Enteric tube in place with tip in gastric lumen. Bones/joints: No acute osseous abnormality. IMPRESSION: Endotracheal tube, enteric tube and right IJ central venous catheter are well-positioned. Marked worsening of lung aeration with diffuse opacification bilaterally, suggestive of ARDS. <MYCVCSECTION> Communications: 05/01/20 06:32 Verify Receipt with Nurse Verified receipt with EDOUARD Chung in ICU on 05/01 06:32 (-04:00)
[2020-05-01 06:18] LABS: Potassium 4.1 mmol/L (3.5-5.1)
[2020-05-01] MEDS ORDERED: CISATRACURIUM 200 MG in SODIUM CHLORIDE 0.9% 180 ML IV SCH (06:30)
[2020-05-01] MEDS: IPRATROPIUM-ALBUTEROL 3 ML NEB INHALATION SCH ×2 (07:48→11:37)
[2020-05-01] MEDS: THIAMINE 100 MG/ML 2 ML VIAL IVP SCH (07:52)
[2020-05-01] MEDS: CHLORHEXIDINE GLUCONATE 15 ML CUP MUCOUS MEM SCH (07:55)
[2020-05-01] MEDS: PANTOPRAZOLE 40 MG/10 ML VIAL IVP SCH (07:56)
[2020-05-01] MEDS: MUPIROCIN 2% OINT 22 GM TUBE TOPICAL SCH (07:59)
[2020-05-01] MEDS ORDERED: ARTIFICIAL TEARS-HYPROMELLOSE DROPS 15 ML BTL BOTH EYES SCH (08:00)
[2020-05-01 08:14] VITALS: TEMP 99.8
[2020-05-01] MEDS ORDERED: NOREPINEPHRINE 32 MG in SODIUM CHLORIDE 0.9% 218 ML IV SCH (08:30)
[2020-05-01] MEDS ORDERED: ASPIRIN 300 MG SUPP RECTAL SCH (09:00)
[2020-05-01] MEDS ORDERED: SODIUM CHLORIDE 0.9% 50 ML with VASOPRESSIN 20 UNIT IVPB SCH ×2 (09:00)
[2020-05-01 09:05] VITALS: BP 75/46
[2020-05-01 09:07] LABS: ABG Base Excess -13.1 mmol/L; ABG HCO3 20 mmol/L (21-25); ABG Oxygen Saturation 58.5 % (94-97); ABG TCO2 23 mmol/L (19-24); Allen Test Performed? Yes
[2020-05-01 09:10] LABS: ABG PCO2 106 mmHg (35-45); ABG PH 6.88 (7.35-7.45); ABG PO2 52 mmHg (83-108)
[2020-05-01] MEDS ORDERED: SODIUM BICARB 8.4% 50 ML SYR (1 MEQ/ML) IV STA (09:14)
--- NOTE | 2020-05-01 09:14 | P.PN ---
Subjective Progress Note Date: 05/01/20 Principal diagnosis: unresponsive episode Patient is a 39 yo CF with a hx of IV drug use, obeseity, and prior left leg surgery who was brought in by ems after being found unresponsive by a friend laying on the floor. On admission there was concern with overdose and drug screen is positive for methadone, TCAs, benzos, cocaine, and marijuana. Serum alcohol and salicylate levels were negative. CT head no acute process. CT abd and pelvis showed patchy opacity in the left upper and lower lobes as well as left breast swelling. In the ER a central line was placed. She was given a dose of Narcan and had increased responsiveness and was started on BiPap. She was found to have sepsis, rhabdo, REGLA, hyperkalemia, lactic acidosis, and altered mentation due to overdose. She required intubation early in the day on 04/29 secondary to worsening respiratory status. Pulmonology was consulted. She was started on Zosyn for possible left-sided aspiration pneumonia. She was started on a sodium bicarb drip as her CPKs were increasing. She developed increasing potassium levels that did improve with IV fluids and initiation of sodium bicarb. Nephrology was consulted and recommended continuing with IV fluids, they also recommended contacting poison control. She was noted to have anascoria and neurology was consulted this was felt likely to be due to vasoconstriction due to cocaine use, CTA head and neck with no significant stenosis. Her renal function continued to worsen on 04/30 and the decision was made to initiate hemodialysis. Patient was noted to have a troponin of 4. Cardiology was contacted. They recommended initiating metoprolol secondary to tachycardia. Echo with EF 55-60%. Overnight on 04/30 her oxygen requirements increased and CXR on 05/01 showed ARDS. She became hypotensive and required vasopressors Patient seen and examined at bedside. She remains sedated and on mechanical ventilation with FiO2 at 100% and increasing needs for levo. On my arrival to room Dr. Quiroga had just contacted the patients mother. General: max distress, ill appearing, appears at stated age, cyanotic with blue lips, excoriation over bilateral inner thighs. Derm: warm, dry, purple discoloration to bilateral lower extremities Head: atraumatic, normocephalic, symmetric Eyes: anicteric sclera, no lid lesion Mouth: mucus membranes dry, No lip lesion, cyanotic lip lesions, Cardiovascular: S1S2 reg, no murmur, positive posterior tibial pulse bilateral, Lungs: Coarse breath sounds bilaterally, no rhonchi, on vent Abdominal: soft, nontender to palpation, no guarding, no appreciable organomegaly Ext: no gross muscle atrophy, diffuse anasarca, no contractures Neuro: No tremors noted, no muscle rigidity Psych: sedated, no withdrawal to pain Toxic metabolic encephalopathy secondary to probable polysubstance overdose - Positive for benzodiazepines, tricyclics, methadone, cocaine, and marijuana on admission drug screen - supportive care Acute hypoxic respiratory failure, suspect aspiration pneumonia, ARDS -Intubated on 04/29/20 -Pulmonary recommendations -Zosyn - Sputum culture pending - blood cultures Septic Shock - vasopressors per critical care Acute renal failure secondary to rhabdo -Nephrology recommendations: First round of HD completed on 04/30 with removal of 1L -Avoid nephrotoxic agents -Follow renal profile -Avoid hypotension as able Anasacoria - neurorecommendations: Recommends - CTA of the head and neck without significant stenosis Thrombocytopenia - likely reactive - follow CBC Hypocalcemia -replace per nephro -Continue to monitor Shock liver, Hep C + -May also be due to rhabdo -Continue with Mucomyst -Follow liver function -Avoid hepatotoxic agents Multiple excoriations over medial proximal thigh -Apply mupirocin ointment -Monitor for signs and symptoms of developing infection Elevated troponin - Cardiology recommendations appreciated. Acton to be noncardiac. Obesity with BMI 44.4 -Structured outpatient weight loss Lactic acidosis, resolved Metabolic acidosis, resolved Hyperkalemia, resolved Poor prognosis, Critical care graciously updated the mother over the phone. DVT prophylaxis: Heparin Discussed with: Patient and nursing Anticipated discharge: pending clinic course Anticipated discharge place: pending clinica course A total of 45 minutes was spent on the care of this complex patient more than 50% of the time was spent in counseling and care coordination. Objective - Vital Signs Vital signs: Vital Signs Temp 99.8 F H 05/01/20 08:00 Pulse 133 H 05/01/20 08:00 Resp 20 05/01/20 08:00 BP 106/50 05/01/20 08:00 Pulse Ox 81 L 05/01/20 08:00 Intake & Output 04/30/20 05/01/20 05/01/20 18:59 06:59 18:59 Intake Total 4164.329 3962.105 594.232 Output Total 410 1360 50 Balance 3754.329 2602.105 544.232 Weight 136.5 kg Intake: IV 2400 2400 400 Sodium Chloride 0.9% 1, 2400 2400 400 000 ml @ 200 mls/hr IV . Q5H SPIKE Rx#:[id number] Intake, IV Titration 4491.880 4485.105 168.232 Amount Calcium Gluconate 2 gm In 100 Sodium Chloride 0.9% 100 ml @ 100 mls/hr IVPB ONCE ONE Rx#:[id number] Dextrose 5% in Water 1, 375 000 ml @ 75 mls/hr IV . [id number] SPKIE with Sodium Bicarb (1 Meq/ml) 150 ml Rx#:[id number] Dextrose 5% in Water 500 568.37 620.04 103.34 ml @ 51.667 mls/hr IV . Q12H SPIKE with Acetylcysteine IV 24,000 mg Rx#:[id number] Piperacillin-Tazobactam 3 100 .375 gm In Sodium Chloride 0.9% 100 ml @ 25 mls/hr IVPB Q8HR SPIKE Rx# :[id number] propofoL 1,000 mg In 348.959 440.065 64.892 Empty Bag 1 bag @ Titrate IV .Q0M SPIKE Rx#: [id number] Tube Feeding 282 312 26 Other 90 90 Output: Urine 410 360 50 Hemodialysis 1000 Other: Voiding Method Indwelling Catheter Indwelling Catheter Indwelling Catheter ABP, PAP, CO, CI - Last Documented Arterial Blood Pressure 81/55 - Labs CBC & Chem 7: 05/01/20 04:35 05/01/20 04:35 Labs: Abnormal Lab Results - Last 24 Hours (Table) 04/30/20 04/30/20 04/30/20 Range/Units 04:05 11:35 14:44 WBC (3.8-10.6) k/uL RBC (3.80-5.40) m/uL Hct (34.0-46.0) % Plt Count (150-450) k/uL Neutrophils # (1.3-7.7) k/uL APTT 44.7 H (22.0-30.0) sec ABG pH (7.35-7.45) ABG pO2 (83-108) mmHg ABG HCO3 (21-25) mmol/L ABG O2 Saturation (94-97) % Sodium (137-145) mmol/L Carbon Dioxide (22-30) mmol/L BUN (7-17) mg/dL Creatinine (0.52-1.04) mg/dL POC Glucose (mg/dL) 146 H (75-99) mg/dL Calcium (8.4-10.2) mg/dL Phosphorus (2.5-4.5) mg/dL AST (14-36) U/L ALT (4-34) U/L Creatine Kinase (30-135) U/L Total Protein (6.3-8.2) g/dL Albumin (3.5-5.0) g/dL Hep C IgG Ab Reactive A (Non-Reactive) 04/30/20 04/30/20 05/01/20 Range/Units 19:00 23:56 04:35 WBC (3.8-10.6) k/uL RBC (3.80-5.40) m/uL Hct (34.0-46.0) % Plt Count (150-450) k/uL Neutrophils # (1.3-7.7) k/uL APTT (22.0-30.0) sec ABG pH (7.35-7.45) ABG pO2 (83-108) mmHg ABG HCO3 (21-25) mmol/L ABG O2 Saturation (94-97) % Sodium 134 L (137-145) mmol/L Carbon Dioxide 17 L (22-30) mmol/L BUN 42 H (7-17) mg/dL Creatinine 2.79 H (0.52-1.04) mg/dL POC Glucose (mg/dL) 150 H 117 H (75-99) mg/dL Calcium 6.0 L* (8.4-10.2) mg/dL Phosphorus 6.3 H (2.5-4.5) mg/dL AST 1418 H (14-36) U/L ALT 589 H (4-34) U/L Creatine Kinase 68067 H* (30-135) U/L Total Protein 3.6 L (6.3-8.2) g/dL Albumin 1.7 L (3.5-5.0) g/dL Hep C IgG Ab (Non-Reactive) 05/01/20 05/01/20 05/01/20 Range/Units 04:35 04:37 05:47 WBC 14.2 H (3.8-10.6) k/uL RBC 3.61 L (3.80-5.40) m/uL Hct 33.6 L (34.0-46.0) % Plt Count 112 L (150-450) k/uL Neutrophils # 12.6 H (1.3-7.7) k/uL APTT (22.0-30.0) sec ABG pH 7.29 L (7.35-7.45) ABG pO2 65 L (83-108) mmHg ABG HCO3 19 L (21-25) mmol/L ABG O2 Saturation 89.4 L (94-97) % Sodium (137-145) mmol/L Carbon Dioxide (22-30) mmol/L BUN (7-17) mg/dL Creatinine (0.52-1.04) mg/dL POC Glucose (mg/dL) 122 H (75-99) mg/dL Calcium (8.4-10.2) mg/dL Phosphorus (2.5-4.5) mg/dL AST (14-36) U/L ALT (4-34) U/L Creatine Kinase (30-135) U/L Total Protein (6.3-8.2) g/dL Albumin (3.5-5.0) g/dL Hep C IgG Ab (Non-Reactive) Microbiology - Last 24 Hours (Table) 04/29/20 23:58 Gram Stain - Preliminary Sputum Sputum Culture - Preliminary
--- NOTE | 2020-05-01 09:34 | P.PN ---
Subjective Progress Note Date: 05/01/20 Principal diagnosis: Respiratory failure. A 39-year-old woman, brought in by EMS, for overdose. The patient's drug screen was positive for methamphetamines, benzodiazepines, cocaine, marijuana. The patient apparently was found by a friend, lying down unresponsive. She apparen tly had drug paraphernalia next to her, including a crack pipe. The patient apparently did arouse to tactile stimulus, but did not speak clearly. No additional history can be elicited. Apparently sometime this morning, his of worsening respiratory status, my partner was called by the ICU nurse, the patient was intubated on April 29. This was for respiratory distress. There was some concern about aspiration pneumonia. Currently, she remains on the mechanical ventilator. She is on the volume assist control mode, rate of 20, tidal volume 400, FiO2 100%, and PEEP of 5. On those settings, the pO2 was 93, pCO2 42, and pH 7.26. She's getting saline at 200 mL an hour, and propofol at 45 mcg/kg/m. Because of the increasing creatine kinase, the patient will get a sodium bicarbonate IV. We will put 3 ampules of sodium bicarbonate and D5W and run at 75 mL an hour. In addition, we'll increase the PEEP from 5-10, and try to wean the FiO2. We'll also start the patient on tube feeds, and maintain the Zosyn for suspected aspiration pneumonia. Interestingly, the nurse points out multiple scratches on her left facial area, and multiple bruises and scratches in the perineal area. A small blood blister was also seen in the area of the mons pubis. Progress note dated 04/30/2020. As is a 39-year-old female brought in EMS for overdose. Her drug screen was positive for benzodiazepines, cocaine, marijuana, and try cyclic antidepressants. The patient was found by a friend lying down, and she was unresponsive. She was brought to the emergency room, and then transferred up to the ICU. Yesterday, early in the morning, she was intubated and mechanically ventilated. Her oxygenation was poor, so we had increased the PEEP up to 15. In addition, later that day, the patient was found to be dyssynchronous with the mechanical ventilator, and we switched the modality from volume assist control, to VC plus. Her current settings include a targeted tidal volume 400, and inspiratory time of 0.8 seconds, FiO2 of 70%, PEEP of 15, and rate of 20. Her most recent arterial blood gases show a PaO2 of 128, PaCO2 43, and pH 7.3. The patient's on saline at 200 mL an hour, D5W, with 3 ampules of sodium bicarbonate at 75 mL an hour, propofol 50 mcg/kg/m, Mucomyst as per poison control, and vital high protein at 20 mL an hour, with a goal of 26 mL now. We are going to stop the bicarbonate drip at noon. Her pH is now up to 7.3. Laboratory data includes a white count of 15.7, hemoglobin of 14.9, hematocrit of 41.9, and a platelet count of 119,000. Sodium is 135, potassium 4.8, chlorides 101, CO2 20, anion gap 14, BUN 43, and creatinine 2.52. AST is 2103, ALT is 888, and creati ne kinase is 115,294. Chest x-ray shows a left-sided infiltrate with pleural effusion. Progress note dated 05/01/2020. 39-year-old female, brought into the emergency room for an overdose of benzodia zepines, cocaine, marijuana, and tricyclic antidepressants. The patient was initially found by a friend lying down and was unresponsive. 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 Since that time, she's shown continuous and progressive deterioration. Her chest x-ray has difficulty worsened overnight, she is up to 100% and 20 of PEEP. I had to paralyze her early this morning. Her previous ventilator settings included pressure regulated volume control, with a targeted tidal volume 400, his story time of 0.8 seconds, FiO2 100%, PEEP of 20, and a rate of 20. Her gases this morning showed a PaO2 of 65, pCO2 40, pH is 7.29. Because she is paralyze, I switched her from pressure regulated volume control, volume assist control, settings, of rate 20, tidal volume 350, FiO2 100%, and PEEP of 20. In addition, the patient is on saline at 200 mL an hour, a Mucomyst drip per poison control, propofol 50 mcg/kg/m, Nimbex at 2 g kilogram per minute, [id number] monitoring, saline at KVO, and tube feeds which are on hold, Since rounding this morning, her condition has worsened further, and we had to add norepinephrine for blood pressure control, and also vasopressin. The vasopressin is at 0.03 units per minute. They're hoping to prone her today, but she is too unstable at this time. I did have a chance to speak to her mother, and told her mother that her daughter was extremely ill, and likely would not survive. The patient did have hemodialysis yesterday, on April 30, and 1 L of fluid was removed. She is not going to be able to tolerate dialysis today. A repeat blood gas after paralysis, and the vent changes, show a PaO2 of 52, a PaCO2 of 106, pH of 6.88. The patient will have her rate increased from 20 to 30 breaths per minute, and we'll give her 3-4 ampules of sodium bicarbonate. Objective - Vital Signs Vital signs: Vital Signs Temp 99.8 F H 05/01/20 08:00 Pulse 134 H 05/01/20 09:00 Resp 20 05/01/20 09:00 BP 75/46 05/01/20 09:00 Pulse Ox 63 L 05/01/20 09:00 Intake & Output 04/30/20 05/01/20 05/01/20 18:59 06:59 18:59 Intake Total 4164.329 3962.105 794.232 Output Total 410 1360 65 Balance 3754.329 2602.105 729.232 Weight 136.5 kg Intake: IV 2400 2400 600 Sodium Chloride 0.9% 1, 2400 2400 600 000 ml @ 200 mls/hr IV . Q5H SPIKE Rx#:[id number] Intake, IV Titration 4116.601 3947.105 168.232 Amount Calcium Gluconate 2 gm In 100 Sodium Chloride 0.9% 100 ml @ 100 mls/hr IVPB ONCE ONE Rx#:[id number] Dextrose 5% in Water 1, 375 000 ml @ 75 mls/hr IV . [id number] SPIKE with Sodium Bicarb (1 Meq/ml) 150 ml Rx#:[id number] Dextrose 5% in Water 500 568.37 620.04 103.34 ml @ 51.667 mls/hr IV . Q12H SPIKE with Acetylcysteine IV 24,000 mg Rx#:[id number] Piperacillin-Tazobactam 3 100 .375 gm In Sodium Chloride 0.9% 100 ml @ 25 mls/hr IVPB Q8HR SPIKE Rx# :[id number] propofoL 1,000 mg In 348.959 440.065 64.892 Empty Bag 1 bag @ Titrate IV .Q0M SPIKE Rx#: [id number] Tube Feeding 282 312 26 Other 90 90 Output: Urine 410 360 65 Hemodialysis 1000 Other: Voiding Method Indwelling Catheter Indwelling Catheter Indwelling Catheter ABP, PAP, CO, CI - Last Documented Arterial Blood Pressure 80/57 - Exam The patient is intubated and mechanically ventilated with an orally placed endotracheal tube and NG tube. She is heavily sedated and paralyzed. HEENT examination is grossly unremarkable. There are some scratches on the left side of her facial area. Neck is supple full range of motion. No adenopathy or thyromegaly, or neck vein distention. Cardiovascular examination reveals regular rhythm rate. Heart sounds are distant. S1-S2 normal. No murmur. Heart rate 134 bpm. Pulmonary examination reveals bilateral coarse rhonchi. Breath sounds equal. No wheezes or crackles. Abdomen is obese. Bowel sounds are not noted. Extremities are intact. No cyanosis or clubbing. Mild edema is noted. Skin reveals the scratches on the left sided facial area, and scratches and bruises in the perineal area. Neurologic examination cannot be adequately assessed. - Labs CBC & Chem 7: 05/01/20 04:35 05/01/20 04:35 Labs: Abnormal Lab Results - Last 24 Hours (Table) 04/30/20 04/30/20 04/30/20 Range/Units 04:05 11:35 14:44 WBC (3.8-10.6) k/uL RBC (3.80-5.40) m/uL Hct (34.0-46.0) % Plt Count (150-450) k/uL Neutrophils # (1.3-7.7) k/uL APTT 44.7 H (22.0-30.0) sec ABG pH (7.35-7.45) ABG pCO2 (35-45) mmHg ABG pO2 (83-108) mmHg ABG HCO3 (21-25) mmol/L ABG O2 Saturation (94-97) % Sodium (137-145) mmol/L Carbon Dioxide (22-30) mmol/L BUN (7-17) mg/dL Creatinine (0.52-1.04) mg/dL POC Glucose (mg/dL) 146 H (75-99) mg/dL Calcium (8.4-10.2) mg/dL Phosphorus (2.5-4.5) mg/dL AST (14-36) U/L ALT (4-34) U/L Creatine Kinase (30-135) U/L Total Protein (6.3-8.2) g/dL Albumin (3.5-5.0) g/dL Hep C IgG Ab Reactive A (Non-Reactive) 04/30/20 04/30/20 05/01/20 Range/Units 19:00 23:56 04:35 WBC (3.8-10.6) k/uL RBC (3.80-5.40) m/uL Hct (34.0-46.0) % Plt Count (150-450) k/uL Neutrophils # (1.3-7.7) k/uL APTT (22.0-30.0) sec ABG pH (7.35-7.45) ABG pCO2 (35-45) mmHg ABG pO2 (83-108) mmHg ABG HCO3 (21-25) mmol/L ABG O2 Saturation (94-97) % Sodium 134 L (137-145) mmol/L Carbon Dioxide 17 L (22-30) mmol/L BUN 42 H (7-17) mg/dL Creatinine 2.79 H (0.52-1.04) mg/dL POC Glucose (mg/dL) 150 H 117 H (75-99) mg/dL Calcium 6.0 L* (8.4-10.2) mg/dL Phosphorus 6.3 H (2.5-4.5) mg/dL AST 1418 H (14-36) U/L ALT 589 H (4-34) U/L Creatine Kinase 29994 H* (30-135) U/L Total Protein 3.6 L (6.3-8.2) g/dL Albumin 1.7 L (3.5-5.0) g/dL Hep C IgG Ab (Non-Reactive) 05/01/20 05/01/20 05/01/20 Range/Units 04:35 04:37 05:47 WBC 14.2 H (3.8-10.6) k/uL RBC 3.61 L (3.80-5.40) m/uL Hct 33.6 L (34.0-46.0) % Plt Count 112 L (150-450) k/uL Neutrophils # 12.6 H (1.3-7.7) k/uL APTT (22.0-30.0) sec ABG pH 7.29 L (7.35-7.45) ABG pCO2 (35-45) mmHg ABG pO2 65 L (83-108) mmHg ABG HCO3 19 L (21-25) mmol/L ABG O2 Saturation 89.4 L (94-97) % Sodium (137-145) mmol/L Carbon Dioxide (22-30) mmol/L BUN (7-17) mg/dL Creatinine (0.52-1.04) mg/dL POC Glucose (mg/dL) 122 H (75-99) mg/dL Calcium (8.4-10.2) mg/dL Phosphorus (2.5-4.5) mg/dL AST (14-36) U/L ALT (4-34) U/L Creatine Kinase (30-135) U/L Total Protein (6.3-8.2) g/dL Albumin (3.5-5.0) g/dL Hep C IgG Ab (Non-Reactive) 05/01/20 Range/Units 09:04 WBC (3.8-10.6) k/uL RBC (3.80-5.40) m/uL Hct (34.0-46.0) % Plt Count (150-450) k/uL Neutrophils # (1.3-7.7) k/uL APTT (22.0-30.0) sec ABG pH 6.88 L* (7.35-7.45) ABG pCO2 106 H* (35-45) mmHg ABG pO2 52 L* (83-108) mmHg ABG HCO3 20 L (21-25) mmol/L ABG O2 Saturation 58.5 L (94-97) % Sodium (137-145) mmol/L Carbon Dioxide (22-30) mmol/L BUN (7-17) mg/dL Creatinine (0.52-1.04) mg/dL POC Glucose (mg/dL) (75-99) mg/dL Calcium (8.4-10.2) mg/dL Phosphorus (2.5-4.5) mg/dL AST (14-36) U/L ALT (4-34) U/L Creatine Kinase (30-135) U/L Total Protein (6.3-8.2) g/dL Albumin (3.5-5.0) g/dL Hep C IgG Ab (Non-Reactive) Microbiology - Last 24 Hours (Table) 04/29/20 23:58 Gram Stain - Preliminary Sputum Sputum Culture - Preliminary Assessment and Plan Assessment: Acute hypoxemic respiratory failure, secondary to polysubstance abuse, and likely aspiration pneumonia. Patient intubated and mechanically ventilated on 04/29/2020. Severe acute respiratory distress syndrome, with a PaO2/FiO2 ratio that is 65. Severe hypotension, currently on maximal norepinephrine, and vasopressin. Suspect overwhelming sepsis secondary to aspiration pneumonia. Probable aspiration pneumonia, left lung. Probably substance overdose, including benzodiazepines, tricyclic antidepre ssants, cocaine, and marijuana. Obesity. Rhabdomyolysis. Anion gap metabolic acidosis. Acute kidney injury. Shock liver. Hyperkalemia. Plan: Plan dated 05/01/2020. Unfortunately, the patient has taken a severe turn for the worse. She is on maximal dose norepinephrine, and is currently on vasopressin to maintain a mean arterial pressure of 65. She has a severe respiratory and metabolic acidosis. The patient is profoundly hypoxemic despite 100% oxygen, and PEEP of 20. The patient is likely not survive this and may within the next hour or two. I did have a chance to speak to the mother. I do that the mother that her daughter was. She is going come in and see her. I did explain to the mother that we should probably just remove her my support and let her go. The mother will come in to see the daughter. The patient did receive some sodium bicarbonate to improve the pH. Also, we increase the rate on the ventilator to improve the pH. These changes in the long run, we'll likely not have any significant impact on the patient's outcome. We will continue to follow. Prognosis is poor. Time with Patient: Greater than 30
--- NOTE | 2020-05-01 09:52 | CONS ---
DATE OF CONSULTATION: 05/01/2020 I was called in for placement of urgent dialysis catheter with patient has been intubated. The patient has acute metabolic encephalopathy, sepsis, rule out pneumonia, acute rhabdomyolysis, acute kidney injury, hyperkalemia and lactic acidosis. Patient has history of polysubstance abuse. The patient is ventilator. PHYSICAL EXAMINATION: Patient has been intubated. Chest has crackles bilateral. Abdomen is protuberant. No localized tenderness noted. Femorals are not palpable bilateral. Patient has some rash in her right and left groin area. PLAN: Placement of the dialysis catheter. Risks and complications discussed. MMODL / IJN: [id number] / [id number]
[2020-05-01 10:04] VITALS: PULSE 142; RESP 30
[2020-05-01] MEDS ORDERED: CALCIUM GLUCONATE 1 GM in SODIUM CHLORIDE 0.9% 100 ML IVPB ONE (10:10)
--- NOTE | 2020-05-01 10:10 | P.PN ---
Subjective Patient is seen in follow-up for acute kidney injury and rhabdomyolysis. Intubated on 100% FiO2. Currently on high-dose Levophed. Vasopressin will also be started. Started on hemodialysis April 30[place] [address] today. Urine output 10-20 mL an hour. Hemodynamically unstable. General: Intubated. HEENT: Head exam is unremarkable. LUNGS: Breath sounds decreased. HEART: Tachycardic. ABDOMEN: Soft, obese. EXTREMITITES: 1+ edema. Objective - Vital Signs Vital signs: Vital Signs Temp 99.8 F H 05/01/20 08:00 Pulse 142 H 05/01/20 10:00 Resp 30 H 05/01/20 10:00 BP 75/46 05/01/20 09:00 Pulse Ox 63 L 05/01/20 09:00 Intake & Output 04/30/20 05/01/20 05/01/20 18:59 06:59 18:59 Intake Total 4164.329 3962.105 994.232 Output Total 410 1360 75 Balance 3754.329 2602.105 919.232 Weight 136.5 kg Intake: IV 2400 2400 700 Sodium Chloride 0.9% 1, 2400 2400 700 000 ml @ 100 mls/hr IV . Q10H SPIKE Rx#:[id number] Intake, IV Titration 4440.921 3793.105 268.232 Amount Calcium Gluconate 2 gm In 100 Sodium Chloride 0.9% 100 ml @ 100 mls/hr IVPB ONCE ONE Rx#:[id number] Dextrose 5% in Water 1, 375 000 ml @ 75 mls/hr IV . [id number] SPIKE with Sodium Bicarb (1 Meq/ml) 150 ml Rx#:[id number] Dextrose 5% in Water 500 568.37 620.04 103.34 ml @ 51.667 mls/hr IV . Q12H SPIKE with Acetylcysteine IV 24,000 mg Rx#:[id number] Piperacillin-Tazobactam 3 100 .375 gm In Sodium Chloride 0.9% 100 ml @ 25 mls/hr IVPB Q8HR SPIKE Rx# :[id number] propofoL 1,000 mg In 348.959 440.065 164.892 Empty Bag 1 bag @ Titrate IV .Q0M SPIKE Rx#: [id number] Tube Feeding 282 312 26 Other 90 90 Output: Urine 410 360 75 Hemodialysis 1000 Other: Voiding Method Indwelling Catheter Indwelling Catheter Indwelling Catheter ABP, PAP, CO, CI - Last Documented Arterial Blood Pressure 76/57 - Labs CBC & Chem 7: 05/01/20 04:35 05/01/20 04:35 Labs: Abnormal Lab Results - Last 24 Hours (Table) 04/30/20 04/30/20 04/30/20 Range/Units 04:05 11:35 14:44 WBC (3.8-10.6) k/uL RBC (3.80-5.40) m/uL Hct (34.0-46.0) % Plt Count (150-450) k/uL Neutrophils # (1.3-7.7) k/uL APTT 44.7 H (22.0-30.0) sec ABG pH (7.35-7.45) ABG pCO2 (35-45) mmHg ABG pO2 (83-108) mmHg ABG HCO3 (21-25) mmol/L ABG O2 Saturation (94-97) % Sodium (137-145) mmol/L Carbon Dioxide (22-30) mmol/L BUN (7-17) mg/dL Creatinine (0.52-1.04) mg/dL POC Glucose (mg/dL) 146 H (75-99) mg/dL Calcium (8.4-10.2) mg/dL Phosphorus (2.5-4.5) mg/dL AST (14-36) U/L ALT (4-34) U/L Creatine Kinase (30-135) U/L Total Protein (6.3-8.2) g/dL Albumin (3.5-5.0) g/dL Hep C IgG Ab Reactive A (Non-Reactive) 04/30/20 04/30/20 05/01/20 Range/Units 19:00 23:56 04:35 WBC (3.8-10.6) k/uL RBC (3.80-5.40) m/uL Hct (34.0-46.0) % Plt Count (150-450) k/uL Neutrophils # (1.3-7.7) k/uL APTT (22.0-30.0) sec ABG pH (7.35-7.45) ABG pCO2 (35-45) mmHg ABG pO2 (83-108) mmHg ABG HCO3 (21-25) mmol/L ABG O2 Saturation (94-97) % Sodium 134 L (137-145) mmol/L Carbon Dioxide 17 L (22-30) mmol/L BUN 42 H (7-17) mg/dL Creatinine 2.79 H (0.52-1.04) mg/dL POC Glucose (mg/dL) 150 H 117 H (75-99) mg/dL Calcium 6.0 L* (8.4-10.2) mg/dL Phosphorus 6.3 H (2.5-4.5) mg/dL AST 1418 H (14-36) U/L ALT 589 H (4-34) U/L Creatine Kinase 06662 H* (30-135) U/L Total Protein 3.6 L (6.3-8.2) g/dL Albumin 1.7 L (3.5-5.0) g/dL Hep C IgG Ab (Non-Reactive) 05/01/20 05/01/20 05/01/20 Range/Units 04:35 04:37 05:47 WBC 14.2 H (3.8-10.6) k/uL RBC 3.61 L (3.80-5.40) m/uL Hct 33.6 L (34.0-46.0) % Plt Count 112 L (150-450) k/uL Neutrophils # 12.6 H (1.3-7.7) k/uL APTT (22.0-30.0) sec ABG pH 7.29 L (7.35-7.45) ABG pCO2 (35-45) mmHg ABG pO2 65 L (83-108) mmHg ABG HCO3 19 L (21-25) mmol/L ABG O2 Saturation 89.4 L (94-97) % Sodium (137-145) mmol/L Carbon Dioxide (22-30) mmol/L BUN (7-17) mg/dL Creatinine (0.52-1.04) mg/dL POC Glucose (mg/dL) 122 H (75-99) mg/dL Calcium (8.4-10.2) mg/dL Phosphorus (2.5-4.5) mg/dL AST (14-36) U/L ALT (4-34) U/L Creatine Kinase (30-135) U/L Total Protein (6.3-8.2) g/dL Albumin (3.5-5.0) g/dL Hep C IgG Ab (Non-Reactive) 05/01/20 Range/Units 09:04 WBC (3.8-10.6) k/uL RBC (3.80-5.40) m/uL Hct (34.0-46.0) % Plt Count (150-450) k/uL Neutrophils # (1.3-7.7) k/uL APTT (22.0-30.0) sec ABG pH 6.88 L* (7.35-7.45) ABG pCO2 106 H* (35-45) mmHg ABG pO2 52 L* (83-108) mmHg ABG HCO3 20 L (21-25) mmol/L ABG O2 Saturation 58.5 L (94-97) % Sodium (137-145) mmol/L Carbon Dioxide (22-30) mmol/L BUN (7-17) mg/dL Creatinine (0.52-1.04) mg/dL POC Glucose (mg/dL) (75-99) mg/dL Calcium (8.4-10.2) mg/dL Phosphorus (2.5-4.5) mg/dL AST (14-36) U/L ALT (4-34) U/L Creatine Kinase (30-135) U/L Total Protein (6.3-8.2) g/dL Albumin (3.5-5.0) g/dL Hep C IgG Ab (Non-Reactive) Microbiology - Last 24 Hours (Table) 04/29/20 23:58 Gram Stain - Preliminary Sputum Sputum Culture - Preliminary Assessment and Plan Plan: Assessment: 1. Acute kidney injury secondary to ATN secondary to rhabdomyolysis. Oliguric. Started on hemodialysis April 30. 2. [place] [address] today. 3. Hyperkalemia secondary to acute kidney injury, rhabdomyolysis and metabolic acidosis. Improved. 4. Hypocalcemia secondary to acute kidney injury and rhabdomyolysis. Corrected calcium near 8. 5. Metabolic acidosis secondary to acute kidney injury and IV fluids. 6. Polysubstance drug overdose. 7. Hyperphosphatemia secondary to acute kidney injury. Phosphorus level 6.3 today. Plan: Decrease rate of normal saline to 100 mL an hour. Calcium will be replaced. Avoid nephrotoxins. Overall prognosis guarded. Family will be coming in soon. Possibly comfort care. Patient is hemodynamically unstable. Will attempt SLED pending family's decision.
--- NOTE | 2020-05-01 10:20 | PCN ---
PROCEDURE NOTE PREOPERATIVE DIAGNOSES: Acute metabolic encephalopathy, acute rhabdomyolysis, acute kidney injury, hyperkalemia. POSTOPERATIVE DIAGNOSES: Acute metabolic encephalopathy, acute rhabdomyolysis, acute kidney injury, hyperkalemia. PROCEDURE: Ultrasound-guided dialysis catheter placed in the right jugular vein. PROCEDURE: This patient was seen in the room. First we tried to place a dialysis catheter in through the femoral approach, which was not successful. Then the right side of the neck was prepped and drapes applied in usual sterile manner and 1% lidocaine was infiltrated. Ultrasound-guided micropuncture introduced to the right jugular vein, micropuncture guidewire was passed and 4-Irish dilator advanced on top of the guidewire. After that, we passed a regular guidewire without any resistance. The dilator was advanced and then we placed a dialysis catheter, flushed with heparin saline and hep-locked and secured with 3-0 nylon. Dressing applied. Patient tolerated the procedure well. MMODL / IJN: [id number] /
[2020-05-01] MEDS ORDERED: LORazepam 2 MG/ML INJ IV PRN ×3 (10:34→11:06)
[2020-05-01] MEDS ORDERED: ATROPINE OPHTH SOLN 1% 5ML BTL SUBLINGUAL PRN (10:34)
[2020-05-01] MEDS ORDERED: MORPHINE SULFATE (100 MG/2 ML) 100 MG in SODIUM CHLORIDE 0.9% 100 ML IV SCH (11:00)
--- NOTE | 2020-05-01 12:05 | P.DS ---
Providers Date of admission: 04/29/20 01:48 Expected date of discharge: 05/01/20 Attending physician: Elva Rodas MD Consults: 04/29/20 01:47 Consult Physician Routine Consulting Provider: Qing Stanley Consult Reason/Comments: Acute kidney injury Do you want consulting provider notified?: Yes 04/29/20 01:48 Consult Physician Urgent Consulting Provider: Gera Gotti Consult Reason/Comments: Intensive care management Do you want consulting provider notified?: Already Contacted 04/29/20 13:07 Consult Physician Routine Consulting Provider: Jerome Quiroga Consult Reason/Comments: unequal pupils Do you want consulting provider notified?: Yes 04/30/20 09:38 Consult Physician Urgent Consulting Provider: Matthias Cannon Consult Reason/Comments: Hemodialysis catheter insertion Do you want consulting provider notified?: Yes Primary care physician: Evan Lobo MD Hospital Course: Discharge Diagnosis: Patient Toxic metabolic encephalopathy secondary to probable polysubstance overdose Acute hypoxic respiratory failure, suspect aspiration pneumonia, ARDS Septic Shock Acute renal failure secondary to rhabdo, requiring HD Anasacoria Thrombocytopenia Hypocalcemia Shock liver Hepatitis C Multiple excoriations over medial proximal thigh Elevated troponin Obesity with BMI 44.4 Lactic acidosis, resolved Metabolic acidosis, resolved Hyperkalemia, resolved Hospital Course: Patient is a 39 yo CF with a hx of IV drug use, obeseity, and prior left leg surgery who was brought in by ems after being found unresponsive by a friend laying on the floor. On admission there was concern with overdose and drug screen is positive for methadone, TCAs, benzos, cocaine, and marijuana. Serum alcohol and salicylate levels were negative. CT head no acute process. CT abd and pelvis showed patchy opacity in the left upper and lower lobes as well as left breast swelling. In the ER a central line was placed. She was given a dose of Narcan and had increased responsiveness and was started on BiPap. She was found to have sepsis, rhabdo, REGLA, hyperkalemia, lactic acidosis, and al tered mentation due to overdose. She required intubation early in the day on 04/29 secondary to worsening respiratory status. Pulmonology was consulted. She was started on Zosyn for possible left-sided aspiration pneumonia. She was started on a sodium bicarb drip as her CPKs were increasing. She developed increasing potassium levels that did improve with IV fluids and initiation of sodium bicarb. Nephrology was consulted and recommended continuing with IV fluids, they also recommended contacting poison control. She was noted to have anascoria and neurology was consulted this was felt likely to be due to vasoconstriction due to cocaine use, CTA head and neck with no significant stenosis. Her renal function continued to worsen on 04/30 and the decision was made to initiate hemodialysis. Patient was noted to have a troponin of 4. Cardiology was contacted. They recommended initiating metoprolol secondary to tachycardia. Echo with EF 55-60%. Overnight on 04/30 her oxygen requirements increased and CXR on 05/01 showed ARDS. She became hypotensive and required vasopressors. She continued to rapidly decline. Once family arrived she was transitioned to comfort and passed peacefully at 1130. A total of 25 minutes of time were spent preparing this complex discharge summary . Plan - Discharge Summary New Discharge Prescriptions: No Action Spectravite Ultra Women 18mg-0.4 Tablet 1 tab PO DAILY Discharge Medication List Spectravite Ultra Women 18mg-0.4 Tablet 1 tab PO DAILY 04/28/20 [History] Follow up Appointment(s)/Referral(s): Evan Lobo MD [Primary Care Provider] - 1-2 days - Preliminary Cause of Preliminary Cause of : ARDS
[2020-05-01 12:25] LABS: Hepatitis B Surface Antibody Reactive (Non-Reactive)
[2020-05-01] MEDS ORDERED: ATORVASTATIN 80 MG TAB PO SCH (21:00)
== END 2020-05-01 12:59 | disposition expired | DRG 917 ==
LOC: EC 22:35 → 2SICU 04-29 01:48
PROVIDERS: ADMIT Internal Medicine; ATTEND Internal Medicine
PROC: 5A1D70Z Performance of Urinary Filtration, Intermittent, Less than 6 Hours Per Day (ICD-10-PCS; principal; 2020-04-29)
PROC: 0BH17EZ Insertion of Endotracheal Airway into Trachea, Via Natural or Artificial Opening (ICD-10-PCS; 2020-04-29)
PROC: 02HV33Z Insertion of Infusion Device into Superior Vena Cava, Percutaneous Approach (ICD-10-PCS; 2020-04-29)
PROC: 5A1945Z Respiratory Ventilation, 24-96 Consecutive Hours (ICD-10-PCS; 2020-04-29)
PROC: 3E043XZ Introduction of Vasopressor into Central Vein, Percutaneous Approach (ICD-10-PCS; 2020-04-29)
PROC: 03HY32Z Insertion of Monitoring Device into Upper Artery, Percutaneous Approach (ICD-10-PCS; 2020-04-29)
PROC: 4A133J1 Monitoring of Arterial Pulse, Peripheral, Percutaneous Approach (ICD-10-PCS; 2020-04-29)
PROC: 4A133B1 Monitoring of Arterial Pressure, Peripheral, Percutaneous Approach (ICD-10-PCS; 2020-04-29)
DX: T40.3X1A Poisoning by methadone, accidental (unintentional), initial encounter (principal); N17.0 Acute kidney failure with tubular necrosis; J69.0 Pneumonitis due to inhalation of food and vomit; R65.21 Severe sepsis with septic shock; K72.00 Acute and subacute hepatic failure without coma; J80 Acute respiratory distress syndrome; G92 Toxic encephalopathy; A41.01 Sepsis due to Methicillin susceptible Staphylococcus aureus; B37.7 Candidal sepsis; Z51.5 Encounter for palliative care; M62.82 Rhabdomyolysis; Z68.41 Body mass index [BMI] 40.0-44.9, adult; E87.2 Acidosis; T42.4X1A Poisoning by benzodiazepines, accidental (unintentional), initial encounter; Z66 Do not resuscitate; T40.5X1A Poisoning by cocaine, accidental (unintentional), initial encounter; T40.7X1A Poisoning by cannabis (derivatives), accidental (unintentional), initial encounter; F11.10 Opioid abuse, uncomplicated; F14.10 Cocaine abuse, uncomplicated; E87.5 Hyperkalemia; E83.51 Hypocalcemia; E83.39 Other disorders of phosphorus metabolism; D69.6 Thrombocytopenia, unspecified; T14.8XXA Other injury of unspecified body region, initial encounter; E66.9 Obesity, unspecified; B19.20 Unspecified viral hepatitis C without hepatic coma; Z78.1 Physical restraint status; Z20.822 Contact with and (suspected) exposure to COVID-19; F41.9 Anxiety disorder, unspecified; F32.9 Major depressive disorder, single episode, unspecified; H57.02 Anisocoria
CPT/HCPCS: 36415; 36556; 70450; 70496; 70498; 71045; 74176; 80048; 80053; 80074; 80143; 80179; 80306; 80320; 81001; 81025; 82330; 82550; 82553; 82803; 82805; 83605; 83735; 84100; 84132; 84145; 84443; 84484; 85025; 85610; 85730; 86706; 87070; 87077; 87186; 87205; 87635; 90935; 93005; 93306; 94002; 94003; 94640; 95819; 96361; 96365; 96366; 96367; 96368; 96375; 99291